=== PATIENT | male | born 1980 | race Caucasian/White ===

== ENCOUNTER 2021-01-09 15:29 | Outpatient (CLI) | payer BC, SELFPAY ==
--- NOTE | 2021-01-09 | XR_ITS ---
WS: [id number] RIGHT TIBIA-FIBULA 2 VIEWS HISTORY: RT LEG PAIN COMPARISON: None available. Nondisplaced fracture through the medial malleolus. No additional abnormalities are identified. Corre late with trauma to this area as there is not significant soft tissue edema. XR/XR tibia fibula RT 2V [id number] IMPRESSION: Age-indeterminate nondisplaced medial malleolus fracture. Correlate with point tenderness. Otherwise negative.
== END 2021-01-09 15:30 | disposition home or self-care (01) ==
PROVIDERS: PCP Family Medicine; Visit Provider Family Medicine
DX: S82.54XA Nondisplaced fracture of medial malleolus of right tibia, initial encounter for closed fracture (principal); X58.XXXA Exposure to other specified factors, initial encounter
CPT/HCPCS: 73590

== ENCOUNTER 2021-02-05 16:04 | Emergency (ER) | payer BC, SELFPAY ==
[2021-02-05 16:27] VITALS: BP 131/83; PULSE 71; RESP 18; TEMP 36.1; O2SAT 99; BMI 29.8
[2021-02-05 17:06] LABS: Add Urine Microscopic? YES; Bilirubin Urine 1+ (Negative); Blood Urine 3+ (Negative); Glucose Urine UA Norm (Normal); Ketones Urine 1+ (Negative); Leukocyte Esterase Urine Negative (Negative); Nitrate Urine Negative (Negative); Protein Urine Neg (Negative); Specific Gravity, Urine 1.025 (1.005-1.030); Urine Appearance Hazy (CLEAR); Urine Color Yellow (Yellow); Urobilinogen Urine Norm (Negative); pH Urine 5 (5-7)
[2021-02-05 17:07] LABS: Add Urine Culture? Yes; Amorphous Sediment Urine 1+ /hpf; Bacteria Urine 1+ /hpf; RBC Urine 25-40 /hpf (0-2)
--- NOTE | 2021-02-05 17:13 | CTR_ITS ---
PROCEDURE INFORMATION: Exam: CT Abdomen And Pelvis Without Contrast Exam date and time: 02/05/2021 5:18 PM Age: 40 years old Clinical indication: Nausea and vomiting; Abdominal pain; Flank; Left; Additional info: Leftg flank pain TECHNIQUE: Imaging protocol: Computed tomography of the abdomen and pelvis without contrast. Radiation optimization: All CT scans at this facility use at least one of these dose optimization techniques: automated exposure control; mA and/or kV adjustment per patient size (includes targeted exams where dose is matched to clinical indication); or iterative reconstruction. COMPARISON: CR Hip 2-3v LEFT wwo Pelv* [id number] 02/17/2018 9:54 AM RADIATION DOSE METRICS: Total DLP (mGy-cm): 1834.2 FINDINGS: Limitations: The absence of intravenous contrast lessens the sensitivity of this study for solid organ abnormalities. Liver: There is no focal abnormality within the liver. Gallbladder and bile ducts: The gallbladder is normal. Pancreas: The pancreas is normal. Spleen: The spleen is normal. Adrenal glands: The adrenal glands are normal. Kidneys and ureters: There is a 3 mmh mm sized stone in the distal left ureter approximately at the left ureterovesical junction. The stone is approximately 500 Hounsfield units and is possibly visible on the help desk engineer image. The right kidney is normal. There is mild left hydronephrosis. There is a large 5 cm sized peripelvic cyst on the left. There is mild periureteric stranding on the left. There is mild dilatation of the distal left ureter. Stomach and bowel: There is no evidence of colitis/diverticulitis. Appendix: A normal appendix is identified. Intraperitoneal space: Unremarkable. No free air. No significant fluid collection. Vasculature: Unremarkable. No abdominal aortic aneurysm. Lymph nodes: Unremarkable. No enlarged lymph nodes. Urinary bladder: Unremarkable as visualized. Reproductive: The prostate gland demonstrates nonspecific parenchymal calcifications. Bones/joints: The lumbar spine demonstrates mild degenerative changes at multiple levels. Soft tissues: There are small bilateral inguinal hernias containing only fat. CT/CT kidney stone [id number] IMPRESSION: Small obstructing stone at the left ureterovesical junction. Radiation Dose CTDIVOL = (mGy): DLP = 1834.2 (mGy-cm)
[2021-02-05 17:19] LABS: Basophils % 0.2 %; Eosinophils # 0.1 10^3/uL (0.0-0.8); Eosinophils % 0.9 %; Hematocrit 43.8 % (42.0-52.0); Hemoglobin 14.5 g/dL (11.7-16.6); Lymphocytes # 1.7 10^3/uL (0.8-4.8); Lymphocytes % 13.8 %; Mean Corpuscular HGB Conc 33.1 g/dL (30.0-36.0); Mean Corpuscular Hemoglobin 29.2 pg (28.0-34.0); Mean Corpuscular Volume 88.3 fL (80-94); Monocytes # 0.8 10^3/uL (0.2-0.9); Neutrophils # 9.91 10^3/uL (1.8-7.7); Neutrophils % 78.9 %; Nucleated Red Blood Cells % 0 %; Platelet Count 188 10^3/cmm (130-400); Red Blood Count 4.96 10^6/uL (4.1-5.3); Red Cell Distribution Width 14.1 % (12.1-15.1); White Blood Count 12.6 10^3/uL (4.0-10.0)
--- NOTE | 2021-02-05 17:24 | W.ED.MALEGU ---
HPI - Male Genitourinary General: Chief complaint: Urogenital-Male Stated complaint: LOW BACK PAIN, N/V, HE STATES POSS KIDNEY STONE Time Seen by Provider: 02/05/21 17:10 History of Present Illness: HPI Narrative: Patient with history of 1 kidney stone passed. 2 hours ago started with left flank pain pretty severe had some nausea and vomiting worse with that but has been sick the last couple days with the general nausea. Said he is having difficult time urinating this only sometimes been able to urinate today. Has not noticed any blood in his urine. Pain has moved from the left flank toward the side and anterior aspect now denies any other problems MD Complaint: other (Left flank pain) Onset (ago): hour(s) Duration: constant and progressively worsening Location: left flank Radiation: abdomen Severity: moderate Severity scale (1-10): 5 Quality: aching and sharp Relieving factors: none Exacerbating factors: none Associated symptoms: Reports nausea and vomiting Review of Systems Const: Denies: fever(s), chills or body aches Eyes: Denies: change in vision or blurry vision ENMT: Denies: throat pain or nasal congestion Card: Denies: chest pain or dyspnea on exertion Resp: Denies: dyspnea, productive cough or non-productive cough GI: Reports: nausea and vomiting : Reports: flank pain and difficulty urinating Musc: Denies: extremity pain Skin/Breast: Denies: rash Neuro: Denies: headache(s) Psych: Denies: anxiety or depression Phill/Lymph: Denies: easy bruising Physical Exam Const: COMMON NORMALS: no acute distress, average body habitus and patient oriented x3 HENMT: COMMON NORMALS: normocephalic HEAD & SCALP: normal to inspection and normocephalic FACE & SINUS: normal facial exam Eye: COMMON NORMALS: conjunctivae normal GENERAL EYE: appearance normal, both eyes and all related structures CONJUNCTIVA: Yes conjunctivae normal Neck/C-Spine: COMMON NORMALS: no JVD Chest: COMMONS NORMALS: normal inspection of the chest Resp: COMMON NORMALS: normal respiratory effort and clear to auscultation bilaterally AUSCULTATION: clear to auscultation bilaterally Cardio: COMMON NORMALS: no JVD, regular rate and regular rhythm RATE: regular rate RHYTHM: regular rhythm GI: COMMON NORMALS: Normal to inspection, nondistended, normoactive bowel sounds present : BLADDER/KIDNEY EXAM: Yes CVA tenderness on the left Back/Pelvis: GENERAL BACK: Yes CVA tenderness Extremity: COMMON NORMALS: normal to inspection and full ROM Neuro: COMMON NORMALS: patient oriented x3 Course Vital Signs: Vital signs: Vital Signs Temperature 97.0 F L 02/05/21 16:27 Pulse Rate 71 02/05/21 16:27 Respiratory Rate 18 02/05/21 16:27 Blood Pressure 131/83 02/05/21 16:27 Pulse Oximetry 99 02/05/21 16:27 MDM - Male Lab Data: Labs: Lab Results 02/05/21 02/05/21 Range/Units 16:40 17:10 WBC 12.6 H (4.0-10.0) 10^3/ uL RBC 4.96 (4.1-5.3) 10^6/u L Hgb 14.5 (11.7-16.6) g/dL Hct 43.8 (42.0-52.0) % MCV 88.3 (80-94) fL MCH 29.2 (28.0-34.0) pg MCHC 33.1 (30.0-36.0) g/dL RDW 14.1 (12.1-15.1) % Plt Count 188 (130-400) 10^3/c mm MPV 11.0 H (7.4-10.4) fL Neut % (Auto) 78.9 % Lymph % (Auto) 13.8 % Sanders % (Auto) 6.0 % Eos % (Auto) 0.9 % Baso % (Auto) 0.2 % Neut # (Auto) 9.91 H (1.8-7.7) 10^3/u L Lymph # (Auto) 1.7 (0.8-4.8) 10^3/u L Sanders # (Auto) 0.8 (0.2-0.9) 10^3/u L Eos # (Auto) 0.1 (0.0-0.8) 10^3/u L Baso # (Auto) 0.0 (0.0-0.1) 10^3/u L Nucleated RBC % (a uto) 0 % Nucleated RBCs # 0.0 /100WBC Urine Color Yellow (Yellow) Urine Appearance Hazy A (CLEAR) Urine pH 5 (5-7) Ur Specific Gravit y 1.025 (1.005-1.030) Urine Protein Neg (Negative) Urine Glucose (UA) Norm (Normal) Urine Ketones 1+ H (Negative) Urine Blood 3+ H (Negative) Urine Nitrate Negative (Negative) Urine Bilirubin 1+ H (Negative) Urine Urobilinogen Norm (Negative) mg/dL Ur Leukocyte Sheila ase Negative (Negative) Urine RBC 25-40 H (0-2) /hpf Urine WBC None (0-5) /hpf Ur Squamous Epith Cells None (0-5) /hpf Amorphous Sediment 1+ /hpf Urine Bacteria 1+ H (NONE) /hpf Discharge Plan Discharge Prescriptions: No Action lansoprazole 30 mg capsule,delayed release(DR/EC) 30 mg PO BID RF: 0 Flovent HFA 110 mcg/actuation Hfa Aerosol Inhaler 1 puff INHALATION BID PRN (Reason: Shortness Of Breath) RF: 0 olmesartan 40 mg tablet 40 mg PO DAILY RF: 0 hydrochlorothiazide 12.5 mg tablet 12.5 mg PO DAILY RF: 0 Coding Level of Care Code ED 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
[2021-02-05 17:38] LABS: Alanine Aminotransferase 27 U/L (0-41); Albumin Level 4.5 g/dL (3.5-5.2); Alkaline Phosphatase 75 IU/L (40-130); Anion Gap 12.7 (5-19); Aspartate Amino Transferase 22 U/L (0-40); Blood Urea Nitrogen 17 mg/dL (6-20); Calcium 9.3 mg/dL (8.5-10.5); Carbon Dioxide 27 mmol/L (22-29); Chloride 100 mmol/L (98-107); Globulin 2.9 g/dL (1.3-4.6); Glomerular Filtration Rate 81.9 mL/min (90-130); Glucose 99 mg/dL (65-115); Osmolality Calculated 284 mOsm/kg (285-295); Potassium 3.7 mmol/L (3.5-5.1); Sodium 136 mmol/L (136-145); Total Bilirubin 0.6 mg/dL (0.15-1.2); Total Protein 7.4 g/dL (6.6-8.7)
[2021-02-05 18:02] VITALS: RESP 20; O2SAT 98
[2021-02-05] MEDS: sodium chloride 0.9% 1,000 ML 999 ML IV (18:02)
[2021-02-05] MEDS: morphine 4 mg/mL SDV 1 mL IVP (18:02)
[2021-02-05] MEDS: ondansetron 2 mg/ML SDV 2 mL 4 MG IVP (18:02)
[2021-02-05 19:29] VITALS: O2SAT 96; O2SAT 97
[2021-02-05] MEDS: tamsulosin 0.4 mg Capsule PO (19:34)
--- NOTE | 2021-02-05 19:41 | PC.NURSE ---
pt prescription and medication education provided. pt provided with two 5-325mg hydrocodone tablets per MD order with dosing education. pt verbalizes understanding. pt provided with one 4mg zofran tablet to take in the am. pt verbalizes understanding.
[2021-02-05 19:45] VITALS: BP 124/76; PULSE 84; RESP 18; O2SAT 98
--- NOTE | 2021-02-06 11:28 | DCPLANNER ---
communications station manager had message to schedule a follow up appointment for patient with Dr. Ruiz. communications station manager called the office of Dr. Ruiz, spoke with Viviane, gave clinic patients information. communications station manager was told that patients information would be printed and reviewed. Clinic will call patient with appointment information.
--- NOTE | 2021-02-07 08:13 | DCPLANNER ---
Patient has a follow up appointment scheduled for , February 07, 2021 at 9:[address] Ruiz. Clinic will call patient with appointment information.
--- NOTE | 2021-03-12 08:25 | DCPLANNER ---
Patient had a follow up appointment scheduled for 02.07.[address] Ruiz - patient did attend appointment.
== END 2021-02-05 19:48 | disposition home or self-care (01) ==
PROVIDERS: Physician Assistant; Emergency Provider Nurse Practitioner Family; PCP Family Medicine
DX: R11.2 Nausea with vomiting, unspecified (principal); R10.9 Unspecified abdominal pain
CPT/HCPCS: 36415; 74176; 80053; 81001; 85025; 87086; 96361; 96374; 96375; 99284; J2270; J2405; J7030

== ENCOUNTER 2021-02-07 08:16 | Outpatient (CLI) | payer BC, SELFPAY ==
--- NOTE | 2021-02-07 08:00 | XR_ITS ---
WS: [id number] KUB, 02/07/2021 Clinical Data: STONE Comparison: None. Findings: No abnormal intraabdominal masses or calcifications are seen. There is no dilatated small bowel or ev idence of obstruction. There is a moderate amount of fecal material throughout the colon. No abnormal calcifications are see n in the true pelvis. XR/XR KUB [id number] Impression: Negative KUB.
== END 2021-02-07 08:17 | disposition home or self-care (01) ==
LOC: RAD 08:23
PROVIDERS: PCP Family Medicine; Visit Provider Urology
DX: N20.9 Urinary calculus, unspecified (principal)
CPT/HCPCS: 74018; 81003

== ENCOUNTER 2021-02-22 08:24 | Outpatient (CLI) | payer BC, SELFPAY ==
--- NOTE | 2021-02-22 08:15 | XR_ITS ---
WS: [id number] KUB, AP view, 02/22/2021 Clinical Data: N20.1 - Calculus of ureter Comparison: KUB, 02/07/2021. Findings: No abnormal intraabdominal masses or calcifications are seen. There is no dilatated small bowel or ev idence of obstruction. No definite ureteral calculus is seen. XR/XR KUB [id number] Impression: Negative KUB.
== END 2021-02-22 08:25 | disposition home or self-care (01) ==
PROVIDERS: PCP Family Medicine; Visit Provider Urology
DX: N20.1 Calculus of ureter (principal)
CPT/HCPCS: 74018; 81003; 82365; 88300

== ENCOUNTER 2022-06-01 09:23 | Emergency (ER) | payer BC, SELFPAY ==
[2022-06-01 09:40] VITALS: BP 160/90; PULSE 76; RESP 18; TEMP 36.9; O2SAT 96; BMI 29.8
--- NOTE | 2022-06-01 10:05 | XRR_ITS ---
PROCEDURE INFORMATION: Exam: XR Right Ribs with PA Chest Exam date and time: 06/01/2022 10:28 AM Age: 41 years old Clinical indication: Injury or trauma; Other: Kicked by calf; Rib area; Blunt trauma (contusions or hematomas); Additional info: Kicked by cow TECHNIQUE: Imaging protocol: Radiologic exam of the Right ribs with PA chest. Views: 3 views COMPARISON: CT Chest [facility] [place] [id number] 09/19/2015 2:26 PM FINDINGS: Lungs: The lung parenchyma is clear. Pleural spaces: No pneumothorax. No pleural effusion. Heart/Mediastinum: The cardiomediastinal silhouette is within normal limits. Bones/joints: Unremarkable. No displaced rib fractures identified. XR/XR ribs RT mn 3V w CXR1V [id number] IMPRESSION: No acute findings.
--- NOTE | 2022-06-01 10:06 | XRR_ITS ---
PROCEDURE INFORMATION: Exam: XR Right Hip Exam date and time: 06/01/2022 10:28 AM Age: 41 years old Clinical indication: Injury or trauma; Other: Kicked by cow; Blunt trauma (contusions or hematomas); Right; Hip TECHNIQUE: Imaging protocol: Radiologic exam of the Right hip. Views: 2 or 3 views hip with pelvis when performed. COMPARISON: CT kidney stone [id number] 02/05/2021 5:41 PM FINDINGS: Bones/joints: The visualized pelvis is grossly intact. The hip joint maintains normal alignment. No proximal femoral fracture identified. Soft tissues: Unremarkable. XR/XR hip RT 2-3V wo/w pel* [id number] IMPRESSION: No fracture identified.
[2022-06-01 10:16] VITALS: BP 157/132; PULSE 76; RESP 16; O2SAT 97
--- NOTE | 2022-06-01 10:16 | ED_ITS ---
HPI - General Adult General: Chief complaint: General Medical Stated complaint: kicked by calf Time Seen by Provider: 06/01/22 10:16 Source: patient Mode of arrival: ambulatory Limitations: no limitations History of Present Illness: 41-year-old male presents to the ER today after being thrown by calf last night. 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 Patient reports he thinks he landed with his right arm underneath him on the right side. Patient reports right rib pain and right hip pain. Patient reports rib pain is worse with palpation and deep breaths. Patient is very uncomfortable to move. He reports the hip pain is tender to touch however he has been able to walk okay. Patient did take hydrocodone last night due to the pain. He has no other symptoms at this time. Review of Systems General: Reports: 10 or more systems reviewed and unremarkable except in HPI and below PFSH ED PFSH: Medical History Calculus of distal left ureter History of esophageal dilatation Hypertension Recurrent kidney stones Family History Father Hypertension Social History Smoking and tobacco status: never smoked Alcohol intake: current Alcohol intake frequency: holidays/special occasions o nly Marital status: Current occupational status: employed History of recent travel: Yes ([place] 3 weeks ago) Physical Exam Const: COMMON NORMALS: no acute distress, average body habitus, patient oriented x3, no limitations, healthy appearing, alert and well nourished Neck/C-Spine: COMMON NORMALS: full ROM Chest: CHEST: Yes tenderness rib (~8-12) and sternoclavicular joint on the right Resp: COMMON NORMALS: normal respiratory effort, No retractions and clear to auscultation bilaterally EFFORT & INSPECTION: Yes able to speak in complete sentences AUSCULTATION: clear to auscultation bilaterally Cardio: COMMON NORMALS: regular rate, regular rhythm and No murmurs present (Cardio) RATE: regular rate RHYTHM: regular rhythm Back/Pelvis: COMMON NORMALS: thoraco-lumbar ROM normal Extremity: COMMON NORMALS: normal to inspection and full ROM OTHER: Patient has point tenderness to palpation over the right proximal hip joint laterally however normal ROM and normal weight bearing. Neuro: COMMON NORMALS: patient oriented x3 SENSORIUM/ORIENTATION: Yes alert Psych: COMMON NORMALS: mental status grossly normal, Normal thought process present and cooperative THOUGHT PROCESS: Normal thought process present Skin: COMMON NORMALS: no rashes or lesions noted and no wounds GENERAL SKIN EXAM: no rashes or lesions noted Course ED course: 41-year-old male presents to the ER today after being thrown and kicked by cath last night. Patient reports right rib pain and right hip pain. Patient reports pain with deep breaths and with movement. Patient reports he did take hydrocodone last night for the pain which took the edge off. He reports pain in the hip is worse with palpation then with movement. We will get x-rays of the ribs/chest and right hip. Vital Signs: Vital signs: Vital Signs Temperature 98.5 F 06/01/22 09:40 Pulse Rate 76 06/01/22 10:16 Respiratory Rate 16 06/01/22 10:16 Blood Pressure 157/132 06/01/22 10:16 Pulse Oximetry 97 06/01/22 10:16 MDM - General Adult Medical Decision Making 41-year-old male presents to the ER today after being thrown and kicked by cath last night. Patient reports right rib pain and right hip pain. Patient reports pain with deep breaths and with movement. Patient reports he did take hydrocodone last night for the pain which took the edge off. He reports pain in the hip is worse with palpation then with movement. We will get x-rays of the ribs/chest and right hip. X-rays are normal and do not indicate any acute fractures. Likely patient has a rib contusion and hip contusion. Discussed findings with patient. We will do Robaxin and ketorolac for pain. I would recommend patient follow-up with PCP in 4 to 7 days. Rest and conservative treatment recommended. Make sure to do deep breathing exercises to prevent pneumonia. No splinting of the ribs recommended. Return to the ER with new or worsening symptoms. Patient verbalized understanding and was in agreement with the treatment plan. Lab Data Radiology Impressions Ribs X-Ray 06/01/22 10:05 IMPRESSION: No acute findings. Hip/Pelvis X-Ray 06/01/22 10:06 IMPRESSION: No fracture identified. Critical Care Time Critical Care Time: Critical Care Time: No Discharge Plan Discharge Patient Disposition: Home Clinical Impression: Contusion of rib on right side Qualifiers: Encounter type: initial encounter Qualified Code(s): S20.211A - Contusion of right front wall of thorax, initial encounter Contusion of hip, right Qualifiers: Encounter type: initial encounter Qualified Code(s): S70.01XA - Contusion of right hip, initial encounter Condition: Stable Prescriptions: New ketorolac 10 mg tablet 10 mg PO Q8H PRN (Reason: pain) 3 Days 0RF methocarbamol 750 mg tablet 750 mg PO Q8H Qty: 21 0RF Discontinued methylprednisolone [Medrol (Flakito)] 4 mg tablets,dose pack See Rx Instructions PO PER PKG DIR Qty: 21 0RF Rx Instructions: PO PER PKG DIR No Action Flomax 0.4 mg capsule 0.4 mg PO DAILY Qty: 30 0RF doxycycline hyclate 100 mg capsule 100 mg PO BID 7 Days Qty: 14 0RF lansoprazole 30 mg capsule,delayed release(DR/EC) 30 mg PO BID 0RF Flovent HFA 110 mcg/actuation Hfa Aerosol Inhaler 1 puff INHALATION BID PRN (Reason: Shortness Of Breath) 0RF olmesartan 40 mg tablet 40 mg PO DAILY 0RF hydrochlorothiazide 12.5 mg tablet 12.5 mg PO DAILY 0RF hydrocodone-acetaminophen 5-325 mg tablet 1 tab PO TID PRN (Reason: pain) Qty: 10 0RF Discharge Orders: Discharge ED (Routine); Ordered 06/01/22 Ordered By: Bronwyn Casarez Referrals: Leonel Man MD [Primary Care Provider] - Discharge Diet: Usual diet Discharge Activity: Increase activity as tolerated Patient Instructions: Opioid Safety Activity Restrictions/Additional Instructions: Take ketorolac and Robaxin as prescribed. Recommend conservative treatment at this time including warm moist heat alternating with ice. Rest recommended. Avoid splinting. Deep breathing recommended. Follow-up with PCP in 4 to 7 days. Return to the ER with new or worsening symptoms. 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
[2022-06-01 11:28] VITALS: BP 148/99; PULSE 72; RESP 14; O2SAT 96
== END 2022-06-01 11:27 | disposition home or self-care (01) ==
PROVIDERS: Emergency Provider Physician Assistant; PCP Family Medicine
DX: S20.211A Contusion of right front wall of thorax, initial encounter (principal); S70.01XA Contusion of right hip, initial encounter; I10 Essential (primary) hypertension; W55.22XA Struck by cow, initial encounter
CPT/HCPCS: 71101; 73502; 99283

== ENCOUNTER 2024-01-14 04:33 | Inpatient (IN) | payer BC, SELFPAY ==
[2024-01-14] VITALS (9 sets, daily range): BP systolic 87–172; BP diastolic 63–108; PULSE 72–93; RESP 18–22; TEMP 36.7–37.3; O2SAT 92–97; BMI 29.8
--- NOTE | 2024-01-14 04:42 | ECG_ITS ---
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 Measurements Intervals [place] Rate: 92 P: 58 [place]: 157 QRS: 0 QRSD: 141 T: 66 QT: 392 QTc: 486 Interpretive Statements SINUS RHYTHM WITH SINUS ARRHYTHMIA LEFT BUNDLE BRANCH BLOCK ST ELEVATION IN SEPTAL/ANTERIOR LEADS CONSISTENT WITH ACUTE ANTERIOR WALL INJURY No previous ECG available for comparison Electronically Signed On 01-14-2024 14:45:52 REMELT FURNACE EXPEDITER by Ricardo Mackey M.D. [id number] f
--- NOTE | 2024-01-14 04:45 | XRR_ITS ---
PROCEDURE INFORMATION: Exam: XR Chest Exam date and time: 01/14/2024 4:51 AM Age: 43 years old Clinical indication: Chest wall pain; Additional info: Chest pain TECHNIQUE: Imaging protocol: Radiologic exam of the chest. Views: 1 view. COMPARISON: CR XR ribs RT mn 3V w CXR1V [id number] 06/01/2022 10:28 AM FINDINGS: Lungs: Unremarkable. No consolidation. Pleural spaces: Unremarkable. No pleural effusion. No pneumothorax. Heart/Mediastinum: Unremarkable. No cardiomegaly. Bones/joints: Unremarkable. XR/XR chest 1V portable [id number] IMPRESSION: No acute findings.
[2024-01-14 04:53] LABS: Basophils % 0.4 %; Eosinophils # 0.2 10^3/uL (0.0-0.8); Hematocrit 43.1 % (37-53); Lymphocytes # 3.4 10^3/uL (0.8-4.8); Lymphocytes % 40.3 %; Mean Corpuscular HGB Conc 32.7 g/dL (30-55); Mean Corpuscular Hemoglobin 28.8 pg (27-33); Mean Platelet Volume 10.8 fL (7.4-10.4); Monocytes # 0.5 10^3/uL (0.2-0.9); Monocytes % 5.5 %; Neutrophils # 4.37 10^3/uL (1.8-7.7); Neutrophils % 51.6 %; Nucleated Red Blood Cells % 0 %; Platelet Count 200 10^3/cmm (157-399); Red Cell Distribution Width 14.1 % (12.1-15.1); White Blood Count 8.47 10^3/uL (3.29-11.43)
[2024-01-14 05:20] LABS: Alanine Aminotransferase 33 U/L (0-41); Albumin Level 4.5 g/dL (3.5-5.2); Alkaline Phosphatase 65 U/L (40-130); Anion Gap 17.2 (5-19); Aspartate Amino Transferase 35 U/L (0-40); Blood Urea Nitrogen 21 mg/dL (6-20); Calcium 9.3 mg/dL (8.5-10.5); Carbon Dioxide 24 mmol/L (22-29); Chloride 102 mmol/L (98-107); Creatinine Clr Calc Pharmacy 126.7781; Globulin 2.8 g/dL (1.3-4.6); Glomerular Filtration Rate 91.3 mL/min (90-130); Glucose 111 mg/dL (65-115); Osmolality Calculated 292 mOsm/kg (285-295); Potassium 4.2 mmol/L (3.5-5.1); Sodium 139 mmol/L (136-145); Total Bilirubin 0.4 mg/dL (0.15-1.2); Total Protein 7.3 g/dL (6.6-8.7)
[2024-01-14 05:21] LABS: Troponin(5th) Baseline 235 ng/L (0-15)
--- NOTE | 2024-01-14 05:33 | ED_ITS ---
Documented by User: Robby Deng DO 01/14/24 05:45 HPI - Chest Pain 2 General: Chief Complaint: Chest Pain Stated Complaint: Upper Arm and Chest pain Time Seen by Provider: 01/14/24 04:36 History of Present Illness: Patient presents to the ER with complaints of midsternal chest pain. Patient said he began having arm pain bilaterally last night and some indigestion but did not take a thing about it this morning when he went to work he has been started having chest pain that radiated up into his left arm. This was concerning enough that brought him here to the ER. Patient has no history of cardiac disease, chest pain he has hypertension. Patient did not denies nausea vomiting, diaphoresis, shortness of breath, Review of Systems 2 General: Reports: 10 or more systems reviewed and unremarkable except in HPI and below PFSH ED 2 PFSH: Medical History (Updated 01/14/24 @ 07:07 by Sebastian Rivero DO) Acute anterior wall MN Recurrent kidney stones History of esophageal dilatation Hypertension Calculus of distal left ureter Family History Father Hypertension Social History Smoking and tobacco/nicotine status: never used tobacco/nicotine Alcohol intake: current Alcohol intake frequency: holidays/special occasions only Marital status: Current occupational status: employed Physical Exam 2 Const: COMMON NORMALS: no acute distress, average body habitus, patient oriented x3, no limitations, healthy appearing, alert and well nourished HENMT: COMMON NORMALS: normocephalic, atraumatic, hearing grossly normal bilaterally, external ears normal, Normal external nose present, moist oral mucous membranes and oropharynx normal HEAD & SCALP: normocephalic and atraumatic NOSE: Normal external nose present EXTERNAL EAR: Yes external ears normal Neck/C-Spine: COMMON NORMALS: no JVD Chest: COMMONS NORMALS: normal inspection of the chest; negative for normal palpation of entire chest wall (Midsternal tenderness with palpation makes the pain somewhat worse) Resp: COMMON NORMALS: normal respiratory effort, No retractions, No use of accessory muscles and clear to auscultation bilaterally AUSCULTATION: clear to auscultation bilaterally Cardio: COMMON NORMALS: no JVD, regular rate, regular rhythm, S1 normal heart sound present, S2 normal heart sound present, No gallops present (Cardio), No clicks present (Cardio), No murmurs present (Cardio) and No rub (Cardio) R ATE: regular rate RHYTHM: regular rhythm HEART SOUNDS: S1 normal heart sound present and S2 normal heart sound present GI: COMMON NORMALS: Normal to inspection, nondistended, normoactive bowel sounds present, Soft to palpation, non-tender, No hepatosplenomegaly present and no masses PALPATION: Yes Soft to palpation and Yes No hepatosplenomegaly present Neuro: COMMON NORMALS: patient oriented x3 SENSORIUM/ORIENTATION: Yes alert Course 2 Vital Signs: Vital signs: Vital Signs Temperature 98.0 F 01/14/24 04:37 Pulse Rate 84 01/14/24 05:44 Respiratory Rate 20 H 01/14/24 05:44 Blood Pressure 172/108 01/14/24 05:44 Pulse Oximetry 96 01/14/24 05:44 Oxygen Delivery Me thod Room Air 01/14/24 04:37 MDM - Chest Pain Medical Records I reviewed the patient's medical records. Lab Data I reviewed the patient's lab results. 01/14/24 04:49 01/14/24 04:49 Radiology Impressions Chest X-Ray 01/14/24 04:45 IMPRESSION: No acute findings. Laboratory Results WBC 8.47 10^3/uL (3.29-11.43) 01/14/24 04:49 RBC 4.90 10^6/uL (3.85-5.65) 01/14/24 04:49 Hgb 14.10 g/dL (11.27-16.99) 01/14/24 04:49 Hct 43.1 % (37-53) 01/14/24 04:49 MCV 88.0 fl (82-101) 01/14/24 04:49 MCH 28.8 pg (27-33) 01/14/24 04:49 MCHC 32.7 g/dL (30-55) 01/14/24 04:49 RDW 14.1 % (12.1-15.1) 01/14/24 04:49 Plt Count 200 10^3/cmm (157-399) 01/14/24 04:49 MPV 10.8 fL (7.4-10.4) H 01/14/24 04:49 Neut % (Auto) 51.6 % 01/14/24 04:49 Lymph % (Auto) 40.3 % 01/14/24 04:49 [place] % (Auto) 5.5 % 01/14/24 04:49 Eos % (Auto) 2.0 % 01/14/24 04:49 Baso % (Auto) 0.4 % 01/14/24 04:49 Neut # (Auto) 4.37 10^3/uL (1.8-7.7) 01/14/24 04:49 Lymph # (Auto) 3.4 10^3/uL (0.8-4.8) 01/14/24 04:49 [place] # (Auto) 0.5 10^3/uL (0.2-0.9) 01/14/24 04:49 Eos # (Auto) 0.2 10^3/uL (0.0-0.8) 01/14/24 04:49 Baso # (Auto) 0.0 10^3/uL (0.0-0.1) 01/14/24 04:49 Nucleated RBC % (auto) 0 % 01/14/24 04:49 Nucleated RBCs # 0.0 /100WBC 01/14/24 04:49 APTT 26.5 SECONDS (23.9-36.7) 01/14/24 04:49 Sodium 139 mmol/L (136-145) 01/14/24 04:49 Potassium 4.2 mmol/L (3.5-5.1) 01/14/24 04:49 Chloride 102 mmol/L (98-107) 01/14/24 04:49 Carbon Dioxide 24 mmol/L (22-29) 01/14/24 04:49 Anion Gap 17.2 (5-19) 01/14/24 04:49 BUN 21 mg/dL (6-20) H 01/14/24 04:49 Creatinine 0.9 mg/dL (0.7-1.2) 01/14/24 04:49 GFR Calculation 91.3 mL/min (90-130) 01/14/24 04:49 Glucose 111 mg/dL (65-115) 01/14/24 04:49 Calculated Osmolality 292 mOsm/kg (285-295) 01/14/24 04:49 Calcium 9.3 mg/dL (8.5-10.5) 01/14/24 04:49 Total Bilirubin 0.4 mg/dL (0.15-1.2) 01/14/24 04:49 AST 35 U/L (0-40) 01/14/24 04:49 ALT 33 U/L (0-41) 01/14/24 04:49 Alkaline Phosphatase 65 U/L (40-130) 01/14/24 04:49 Troponin T Baseline 235 ng/L (0-15) H* 01/14/24 04:49 Total Protein 7.3 g/dL (6.6-8.7) 01/14/24 04:49 Albumin 4.5 g/dL (3.5-5.2) 01/14/24 04:49 Globulin 2.8 g/dL (1.3-4.6) 01/14/24 04:49 All radiology interpretation(s) finalized by discharge Discharge Plan Discharge Patient Disposition: Admitted As Inpatient Clinical Impression: ST elevation myocardial infarction (STEMI), Hypertension Condition: Stable Coding Level of Care Code ED Business Office Specialist for Chg Fwd Documented by User: Sebastian Rivero DO 01/14/24 07:07 HPI - Chest Pain 2 General: Chief Complaint: Chest Pain Stated Complaint: Upper Arm and Chest pain Time Seen by Provider: 01/14/24 04:36 [facility] ED 2 [facility]: Medical History (Updated 01/14/24 @ 07:07 by Sebastian Rivero DO) Acute anterior wall MN Recurrent kidney stones History of esophageal dilatation Hypertension Calculus of distal left ureter Family History Father Hypertension Social History Smoking and tobacco/nicotine status: never used tobacco/nicotine Alcohol intake: current Alcohol intake frequency: holidays/special occasions only Marital status: Current occupational status: employed Course 2 Vital Signs: Vital signs: Vital Signs Temperature 98.0 F 01/14/24 04:37 Pulse Rate 84 01/14/24 05:44 Respiratory Rate 20 H 01/14/24 05:44 Blood Pressure 172/108 01/14/24 05:44 Pulse Oximetry 96 01/14/24 05:44 Oxygen Delivery Me thod Room Air 01/14/24 04:37 MDM - Chest Pain Medical Decision Making Care assumed at change of shift at approximately 540, reviewed EKG. Orders for heparin Plavix and nitro drip. Patient had already been given aspirin. EKG taken to [facility] by myself and discussed with Dr. Fountain who is currently working on another STEMI patient at this time. Patient has been having chest pain yesterday in his left arm with activities and again this morning when he began to work. Patient has acute ST elevation Anterior leads V1 through 5. At this time he has very little chest discomfort. He was given initial STEMI medications and started on a nitro drip. Dr. Fountain will take this patient to the [facility] immediately after he finishes the current 1 he was about completed. Considered TNKase however since patient's pain is improved and we are about to go to the [facility] we did heparin for now. Repeat EKG shows persistent ST elevations initial troponin 235 chest x-ray does not show any acute findings Differential Diagnosis Likely acute myocardial infarction Lab Data 01/14/24 04:49 01/14/24 04:49 Radiology Impressions Chest X-Ray 01/14/24 04:45 IMPRESSION: No acute findings. Laboratory Results WBC 8.47 10^3/uL (3.29-11.43) 01/14/24 04:49 RBC 4.90 10^6/uL (3.85-5.65) 01/14/24 04:49 Hgb 14.10 g/dL (11.27-16.99) 01/14/24 04:49 Hct 43.1 % (37-53) 01/14/24 04:49 MCV 88.0 fl (82-101) 01/14/24 04:49 MCH 28.8 pg (27-33) 01/14/24 04:49 MCHC 32.7 g/dL (30-55) 01/14/24 04:49 RDW 14.1 % (12.1-15.1) 01/14/24 04:49 Plt Count 200 10^3/cmm (157-399) 01/14/24 04:49 MPV 10.8 fL (7.4-10.4) H 01/14/24 04:49 Neut % (Auto) 51.6 % 01/14/24 04:49 Lymph % (Auto) 40.3 % 01/14/24 04:49 [place] % (Auto) 5.5 % 01/14/24 04:49 Eos % (Auto) 2.0 % 01/14/24 04:49 Baso % (Auto) 0.4 % 01/14/24 04:49 Neut # (Auto) 4.37 10^3/uL (1.8-7.7) 01/14/24 04:49 Lymph # (Auto) 3.4 10^3/uL (0.8-4.8) 01/14/24 04:49 [place] # (Auto) 0.5 10^3/uL (0.2-0.9) 01/14/24 04:49 Eos # (Auto) 0.2 10^3/uL (0.0-0.8) 01/14/24 04:49 Baso # (Auto) 0.0 10^3/uL (0.0-0.1) 01/14/24 04:49 Nucleated RBC % (auto) 0 % 01/14/24 04:49 Nucleated RBCs # 0.0 /100WBC 01/14/24 04:49 APTT 26.5 SECONDS (23.9-36.7) 01/14/24 04:49 Sodium 139 mmol/L (136-145) 01/14/24 04:49 Potassium 4.2 mmol/L (3.5-5.1) 01/14/24 04:49 Chloride 102 mmol/L (98-107) 01/14/24 04:49 Carbon Dioxide 24 mmol/L (22-29) 01/14/24 04:49 Anion Gap 17.2 (5-19) 01/14/24 04:49 BUN 21 mg/dL (6-20) H 01/14/24 04:49 Creatinine 0.9 mg/dL (0.7-1.2) 01/14/24 04:49 GFR Calculation 91.3 mL/min (90-130) 01/14/24 04:49 Glucose 111 mg/dL (65-115) 01/14/24 04:49 Calculated Osmolality 292 mOsm/kg (285-295) 01/14/24 04:49 Calcium 9.3 mg/dL (8.5-10.5) 01/14/24 04:49 Total Bilirubin 0.4 mg/dL (0.15-1.2) 01/14/24 04:49 AST 35 U/L (0-40) 01/14/24 04:49 ALT 33 U/L (0-41) 01/14/24 04:49 Alkaline Phosphatase 65 U/L (40-130) 01/14/24 04:49 Troponin T Baseline 235 ng/L (0-15) H* 01/14/24 04:49 Total Protein 7.3 g/dL (6.6-8.7) 01/14/24 04:49 Albumin 4.5 g/dL (3.5-5.2) 01/14/24 04:49 Globulin 2.8 g/dL (1.3-4.6) 01/14/24 04:49 Discharge Plan Discharge Patient Disposition: Admitted As Inpatient Clinical Impression: ST elevation myocardial infarction (STEMI), Hypertension Condition: Stable Coding Level of Care Code ED Business Office Specialist for Ayde Cronin
--- NOTE | 2024-01-14 05:37 | ECG_ITS ---
[facility] Test Date: 2024-01-14 Pat Name: Perry De Jesus Department: Room: Gender: Male Pulp Maker: : 1980 Requested By: Robby Deng Order Number: [id number] MD: Ricardo Mackey M.D. Measurements Intervals [place] Rate: 70 P: 46 ME: 149 QRS: -10 QRSD: 154 T: 55 QT: 432 QTc: 468 Interpretive Statements SINUS RHYTHM LEFT BUNDLE BRANCH BLOCK [120+ ms QRS DURATION, 80+ ms Q/S IN V1/V2, 85+ ms R IN I/aVL/V5/V6] ST ELEVATION IN SEPTAL/ANTERIOR LEADS CONSISTENT WITH ACUTE ANTERIOR WALL INJURY Compared to ECG 01/14/2024 04:42:37 Left bundle-branch block now present Sinus arrhythmia no longer present Intraventricular conduction delay no longer present Myocardial infarct finding no longer present Electronically Signed On 01-14-2024 14:51:38 JUNIOR HIGH MATH TEACHER by Ricardo Mackey M.D. [email or web address]
[2024-01-14] MEDS: heparin 5,000 unit/mL INJ 1 mL 4000 UNIT IVP (05:53)
[2024-01-14] MEDS: aspirin 81 mg Chew Tablet 324 MG PO (05:56)
[2024-01-14] MEDS: clopidogrel 300 mg Tablet 600 MG PO (05:56)
--- NOTE | 2024-01-14 05:59 | PC.NURSE ---
Pt. has elevated troponin and EKG is concerning of STEMI. 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 Dr. Novak and crew were taken EKG to assess. Waiting for further orders from director life.
[2024-01-14] MEDS: nitroglycerin 0.4 mg sublingual Tablet 0.400000000000000022 MG SUBLINGUAL (06:12)
[2024-01-14] MEDS: heparin drip 25,000 UNIT/500 ML PREMIX 27.9400000000000013 UNIT IV (06:35)
--- NOTE | 2024-01-14 06:42 | XACV_ITS ---
Exam Room: 2 Ht: 183 cm Wt: 100 kg BSA: 2.27 m2 Gender: Male : 1980 Any Known Allergies: No known allergies Exam Priority: Routine Procedure(s): Procedure Description: Diagnostic procedure Procedure Description: PCI procedure Procedure Description: Left Heart Catheterization Procedure Description: Drug Eluting Coronary Stent Procedure Description: PTCA Procedure Description: Coronary Angiography Essie HOPKINS; Diagnostic Cath Status: Emergency Diagnostic Findings * Young man with no prior history with arm discomfort yesterday and then chest pain this morning. EKG shows a new left bundle branch block with typical signs of an acute anterior wall TN. Angiography reveals an occluded LAD in the midportion just beyond the takeoff of a diagonal branch. He has a large ramus intermedius artery which has about a 30 or 40% stenosis in the circumflex is unremarkable. The left main is normal. The right coronary artery is also normal. The circulation is left dominant with a tiny nondominant right coronary artery.. PCI Status: Emergency PCI LVEF Assessed: No PCI Indication: STEMI - Immediate PCI for STEMI Interventional Findings * Initially the LAD underwent angioplasty. There was significant thrombus burden with distal embolization. Prior to any further intervention used an Aggrastat bolus down the vessel and then an Aggrastat drip intravenously. I used 600 mcg of intracoronary nicardipine. Good flow was reestablished. I then stented the vessel with a 3.5 x 12 mm stent. The diagonal branch was jailed but there was no significant plaque shifting into the diagonal branch. The end result was quite good. Decision for PCI with Surgical Consult: No PCI for Multi-vessel Disease: Yes Conclusions 1. Acute anterior wall TN with occluded LAD with undergoing angioplasty and stenting. Significant thrombus burden with Aggrastat and nicardipine utilization. Recommendations * Medical treatment. Interventional RX Recommendation: PCI w/o planned CABG Diagnostic RX Recommendation: PCI w/o planned CABG Anticoagulation: Heparin, Tirofiban Pressures Phase:Rest AO : 145 / 91 ( 110 ) @ 7:09:00 AM 136 / 90 ( 109 ) @ 7:10:00 AM 107 / 82 ( 94 ) @ 7:12:00 AM 113 / 85 ( 98 ) @ 7:13:00 AM 109 / 92 ( 101 ) @ 7:21:00 AM 97 / 83 ( 91 ) @ 7:24:00 AM 101 / 85 ( 93 ) @ 7:32:00 AM LV : 173 / -7 / 20 @ 7:09:00 AM 165 / -8 / 20 @ 7:09:00 AM Valves Phase:DefaultPhase AV : 14.0 @ 7:52:13 AM 14.0 @ 7:52:13 AM AV Mean Gradient: 13.0 @ 7:52:13 AM Clinical Evaluation EBL: 5mL-10mL Procedural Details Pre-Procedure Time Out. Identified patient by full name and date of as verbalized by the patient/guarantor. Does the consent match the physician's order: N/A Emergent. Accurate & Complete Informed Consent: N/A Emergent. Inpatient/Outpatient History & Physical on Chart: N/A Emergent. If H&P is completed, is and addenduem needed: N/A Emergent; If yes, is the addendum complete: N/A Emergent. Visualize and Verify Site with Patient/Guarantor: N/A. Relevant Radiology Images available: N/A Emergent. Pre-op teaching completed and patient verbalized understanding. The risks, benefits, and alternatives of sedation and/or procedure were discussed by physician. The patient agrees to continue. Procedure started. [facility] Clinical Fraility Score: 3: Managing Well. Optometric Coordinator Indications: ACS <= 24 hours. Chest Pain Symptom Assessment: Typical Angina Symptoms. Correct patient, site and procedure confirmed by cath team. Current diagnosis: STEMI. PERRLA. Strong, equal hand tile conduit layer bilaterally. Lungs clear x 5 lobes. IV Site on Arrival: 18 gauge in the left anticubital. IV Fluids: 0.9% NaCl at KVO. 0 mL infused prior to label tacker. Oxygen started at 2liters/min via nasal canula. right groin was prepped with chloroprep then draped in the usual sterile fashion. right radial was prepped with chloroprep then draped in the usual sterile fashion. Physician arrived. Current Diagnosis : STEMI. Baseline sample Acquired. HR: 75 BPM. Physician scrubbed in. Immediate Pre-Procedure Time Out. Correct Patient: N/A Emergent; Correct Procedure: N/A Emergent; Correct Site: N/A Emergent; Correct Patient Position: N/A Emergent; Correct Supplies: N/A Emergent; Dried Flammable Prep: N/A Emergent; Blood Products Available: N/A Emergent;. Lidocaine 1% infiltrated to the right radial. Arterial access obtained. 6 greenlandic XB 3 guide catheter was inserted over the wire. EDP Sample taken: LV 173/-8,20; HR: 52 BPM; SpO2: 98%. Pullback taken: LV 165/-9,20; AO 145/91(110); Mean: 13mmHg, Peak to Peak: 14mmHg, SEP: 5sec/min; HR: 72 BPM; SpO2: 98%. Multiple views taken of left coronary artery. [place] guidewire was advanced through the guide catheter to lesion in the mid LAD. Patient's family updated. Inflation number : 1 A AB TREK 2.50X15 RX BALLOON was prepped and advanced across the Mid LAD , then inflated to 8 ARIANNE for 0:16 seconds. Inflation number: 2 The AB TREK 2.50X15 RX BALLOON was reinflated across the Mid LAD, to 8 ARIANNE for 0:16 seconds. results checked. Balloon out. Inflation Number : 3 A MDT R PASCUAL 3.5X15 MARYLU -Lot Number# _[id number] EXP: 09/29/2025 was prepped and advanced across the Mid LAD. The stent was deployed at 12 ARIANNE for 0:31 seconds. Stent balloon out over wire. Results checked. Wire out. Guide catheter out. A 5 greenlandic JR4 catheter in over wire. Multiple views taken of right coronary artery. Catheter removed over the standard wire. Lab called with critical lab: 2 hour troponin 265.5 Delta troponin 30.5. Catheter out. Physician scrubbed out. A TR Band was successful obtaining hemostatsis at the Right Radial artery insertion site. Post Procedure: Pulses reassessed and unchanged. PERRLA. Strong, equal hand tile conduit layer bilaterally. No VTE prophylaxis required. Vital chart was stopped. Medication's Wasted: Other = Cardene 24.94 mg. Medication's Wasted: Other = Fentanyl 50 mg. Medication's Wasted: Heparin = 4000 units. Medication's Wasted: Nitro = 49.8 mg. Complications: None. Estimated blood loss: 5mL-10mL. Responsiveness - Normal response to verbal stimuli; alert and oriented, PERRLA. Airway - Unaffected, no intervention required; spontaneous ventilation. Circulation: W/N/L, pulses unchanged. Nausea/Vomiting: No. Patient transferred by wheelchair to CPRU. Access Site Site: Right Radial artery Sheath Size: 6 Fr Hemostasis Method: TR Band Hemostasis Success: Successful Procedure Medications Start: 6:56 AM Stop: 6:56 AM Medication: Versed Amount: 1 mg Route: I.V. Start: 6:56 AM Stop: 6:56 AM Medication: Fentanyl Amount: 25 mcg Route: I.V. Start: 7:01 AM Stop: 7:01 AM Medication: Versed Amount: 1 mg Route: I.V. Start: 7:06 AM Stop: 7:06 AM Medication: Nitrogylcerin Amount: 200 mcg Route: I.A. Start: 7:07 AM Stop: 7:07 AM Medication: Fentanyl Amount: 25 mcg Route: I.V. Start: 7:16 AM Stop: 7:16 AM Medication: Heparin Amount: 2000 units Route: I.V. Start: 7:28 AM Stop: 7:28 AM Medication: Aggrastat 12.5 mg/250 mL Amount: 50 ml Route: I.V. bolus Start: 7:29 AM Stop: 7:29 AM Medication: Aggrastat 12.5 mg/250 mL Amount: 18 ml/hr Route: I.V. drip Start: 7:36 AM Stop: 7:36 AM Medication: Cardene Amount: 200 mcg Route: I.C. Start: 7:37 AM Stop: 7:37 AM Medication: Cardene Amount: 200 mcg Route: I.C. Start: 7:39 AM Stop: 7:39 AM Medication: Cardene Amount: 200 mcg Route: I.C. I, the attending physician, have reviewed and verified all procedure medications. Yes, all medications given per verbal order History/Risk Factors Hypertension: No Dyslipidemia: No Peripheral Arterial Disease (PAD): No Myocardial Infarction (TN): No Obesity: No Renal Disease: No Prior Interventions PCI: No CABG: No Valve Surgery: No Report Signatures Finalized by Dr. Calvin Fountain MD on 01/14/2024 09:01 AM
--- NOTE | 2024-01-14 06:44 | P.HP_ITS ---
Providers/Chief Complaint 2 Admitting Physician: jaz Primary Care Provider: Leonel Man MD Chief Complaint: Upper Arm and Chest pain History of Present Illness Perry De Jesus is a 43 year old male with no prior heart disease. Last evening around 9:00 both of his arms were hurting. He got up and went to work this morning. He then started having chest pain. He came to the emergency room. His initial EKG is at 05 37. The second EKG is 0 619. These show a left bundle branch block with changes consistent with an acute anterior wall MA. At the time of the EKGs I was in the catheterization laboratory with another anterior wall myocardial infarction which was acute. The EKGs were brought to me in the about 6:20. I was still finishing up the first patient at that time. After finishing I went to the emergency room to see this gentleman. He states he still having some discomfort. He has been given aspirin, Plavix and 4000 units of heparin. Hemodynamically he is stable. He will be taken directly to the catheterization laboratory. He does not use tobacco. He has hypertension and kidney stones. No diabetes. Cholesterol status unknown. Review of Systems 2 Narrative: Review of systems is negative. Medications/Allergies Home Medications Medication Instructions Recorded Confirmed Last Taken Type fluticasone propionate 110 1 puff inhalation BID PRN 02/05/21 10/13/23 Unknown History mcg/actuation HFA aerosol inhaler Shortness Of Breath (Flovent HFA) hydrochlorothiazide 12.5 mg tablet 12.5 mg PO DAILY 02/05/21 10/13/23 02/05/21 History lansoprazole 30 mg capsule,delayed 30 mg PO BID 02/05/21 10/13/23 02/05/21 History release tamsulosin 0.4 mg capsule (Flomax) 0.4 mg PO DAILY #30 caps 02/07/21 10/13/23 Unknown Rx methocarbamol 750 mg tablet 750 mg PO Q8H #21 tabs 12/02/22 10/13/23 Unknown Rx olmesartan 40 mg tablet 40 mg PO DAILY #30 tabs 04/01/23 10/13/23 Unknown Rx albuterol sulfate 90 mcg/actuation 2 inh inhalation QID PRN shortness 10/13/23 10/13/23 Unknown Rx aerosol inhaler of breath or wheezing #8.5 grams amoxicillin 500 mg-potassium 1 tab PO TID 7 days #21 tabs 10/13/23 10/13/23 Unknown Rx clavulanate 125 mg tablet (Augmentin) prednisone 20 mg tablet 20 mg PO DAILY #5 tabs 10/13/23 10/13/23 Unknown Rx Allergies Allergy/AdvReac Type Severity Reaction Status Date / Time No Known Allergies Allergy Verified 01/14/24 04:44 PFSH Acute 2 PFSH: Medical History (Updated 01/14/24 @ 06:48 by Calvin Fountain MD) Acute anterior wall MA Recurrent kidney stones History of esophageal dilatation Hypertension Calculus of distal left ureter Family History Father Hypertension Social History Smoking and tobacco/nicotine status: never used tobacco/nicotine Alcohol intake: current Alcohol intake frequency: holidays/special occasions only Marital status: Current occupational status: employed Vitals/I&O/Wt Last Vital Signs Temp 98.0 F 01/14/24 04:37 Pulse 84 01/14/24 05:44 Resp 20 H 01/14/24 05:44 BP 172/108 01/14/24 05:44 Pulse Ox 96 01/14/24 05:44 O2 Del Method Room Air 01/14/24 04:37 Weight last 48 hrs Weight 220 lb Physical Exam 2 Narrative: GENERAL: In general he looks and feels well right now. HEENT: Exam within normal limits. NECK: Supple without jugular vein distention. The carotid upstroke is normal without bruits. BACK: Exam normal. LUNGS: Clear. HEART: Regular rate and rhythm. ABDOMEN: Benign without organomegaly or tenderness. EXTREMITIES: No edema. NEUROLOGIC: Exam normal. SKIN: Unremarkable. Data 01/14/24 04:49 01/14/24 04:49 A&P Assessment and plan (1) Acute anterior wall MA: (2) Recurrent kidney stones: (3) Hypertension: Plan Urgent cardiac catheterization. There was delay due to the other patient being on the table. Attestations 2 Medical Necessity Statement*: Hospitalization for management of an acute anterior wall MA. Expect this stay to last 2 midnights. and Moderate Time for a total of 40 minutes, includes reviewing past or interval history, examining/interviewing patient, placing orders, counseling patient/family/other support, updating patient/family/other support, discussing plan of care with staff, communicating with other healthcare providers, documenting encounter and coordinating care Diagnoses Acute anterior wall MA I21.09 Recurrent kidney stones N20.0 Hypertension I10
[2024-01-14 06:51] LABS: Partial Thromboplastin Time 26.5 SECONDS (23.9-36.7)
[2024-01-14 07:43] LABS: Troponin 5 2HR 265.5 ng/L (0-15); Troponin 5 2HR Delta 30.5 ABS# (0-10)
--- NOTE | 2024-01-14 08:15 | SUR.PHASEI ---
BED AVAILABLE. TRANSFERRED TO CSU VIA BED. REPORT TO SHELBY RN. No change in TR BAND or assessments.
--- NOTE | 2024-01-14 08:24 | PC.NURSE ---
Received patient from cath lab manager post STEMI Pt is alert, relaxed and calm, orientedx3, on room air. pt denies any chest pain but reports of occassional chest discomfort and he said it is not getting any worse. Educated pt to let nurse know if any chest discomfort or pain is constant and getting worse. pt verbalizes understanding. Pt is on aggrastat drip and received verbal order from Dr Fountain to infused the whole bag. NS at 100 ml/hr per order. TR band is intact. no hematoma, swelling or bleeding. Educated pt on no lifting or using right arm to push, pull or lift weights. call light and urinal provided.
--- NOTE | 2024-01-14 09:07 | PC.NURSE ---
Frequent PVC's, AIVT on tele Dr Fountain is aware of the pt's frequent pvc's and aivt. pt is post stemi w/1 stent to mid lad, reperfusion on the territory. pt has no severe steady chest pain but has occassional chest discomfort.
[2024-01-14] MEDS: metoprolol tartrate 25 mg Tablet PO ×2 (09:33→18:10)
--- NOTE | 2024-01-14 09:36 | SUR.PHASEI ---
HOLDING NOTE POST CATH NOTE Received patient from lab support tech. Status post cardiac catheterization via the right radial approach. TR Band in place. Site is hemostatic. Verbal post cath instructions went over with the patient. She understood well. Vitals and assessments per flowsheet. Call light in reach. Informed to call for needs. Holding pending bed availability.
[2024-01-14] MEDS: sodium chloride 0.9% 1,000 ML 100 ML IV ×2 (09:38→23:34)
--- NOTE | 2024-01-14 09:47 | PC.NURSE ---
aggrastat bag is empty and infused. pt unhooked.
[2024-01-14] MEDS: tirofiban 5 MG/100 ML PREMIX 18 MG IV (10:08)
--- NOTE | 2024-01-14 10:45 | ECG_ITS ---
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 Measurements Intervals [place] Rate: 79 P: 0 DC: 0 QRS: 95 QRSD: 152 T: -75 QT: 462 QTc: 532 Interpretive Statements ACCELERATED IDIOVENTRICULAR RHYTHM BORDERLINE RIGHT AXIS DEVIATION [QRS AXIS > 90] INTRAVENTRICULAR CONDUCTION DELAY [130+ ms QRS DURATION] Compared to ECG 01/14/2024 05:37:42 Intraventricular conduction delay now present Sinus rhythm no longer present Left bundle-branch block no longer present Electronically Signed On 01-14-2024 14:49:52 DIRECTOR EXECUTIVE COMMUNICATIONS by Ricardo Mackey M.D. [id number]
--- NOTE | 2024-01-14 12:10 | PC.NURSE ---
pt stated a dull achy pain rated at 1 per scale. he said, i just feel it more when i move around. educated pt to let us know if it is getting severe. pt verbalizes understanding.
[2024-01-14 13:13] LABS: Troponin 5 6HR Delta 6856 ng/L (0-12)
[2024-01-14 13:14] LABS: Troponin 5 6HR 7091 ng/L (0-15)
[2024-01-14] MEDS: acetaminophen 325 mg Tablet 650 MG PO ×2 (15:46→21:32)
[2024-01-14] MEDS: pantoprazole DR 40 mg Tablet PO (18:10)
[2024-01-14] MEDS: atorvastatin 40 mg Tablet 80 MG PO (21:27)
[2024-01-15] VITALS: BP 130/85; PULSE 89; RESP 17; TEMP 37.5; O2SAT 94
[2024-01-15 04:00] VITALS: BP 121/89; PULSE 77; RESP 18; TEMP 37.2; O2SAT 93
[2024-01-15 06:09] VITALS: PULSE 65
--- NOTE | 2024-01-15 07:35 | PM.DCS ---
Discharge Providers Date of Admission: 01/14/24 07:56 Date of Discharge: January 15, 2024 Attending Provider at Admission: Calvin Fountain MD Attending Provider at Discharge: Calvin Fountain MD Primary Care Provider: Leonel Man MD Diagnoses at Discharge Discharge Diagnosis (1) Acute anterior wall UT: Status: Acute (2) Recurrent kidney stones: Status: Acute (3) Hypertension: Status: Acute Reason for Visit Reason for Visit: Upper Arm and Chest pain Brief History: Mateo was 43 years old with no prior history of heart disease. The night before admission he began to have some achiness in both arms. This started around 9 PM. 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 The achiness in his arms worsened and then he developed chest pain. He came to the emergency room where he was found to have a new left bundle branch block and ST segment elevation in the anterior precordial leads. At that time I was notified of his presence in the emergency room I was in the catheterization laboratory with another patient who was having an acute anterior wall myocardial infarction. As soon as I finished that I went to discuss the situation with Perry and his family and we made arrangements to take him to the catheterization laboratory right away. Hospital Course Hospital Course Angiography was accomplished from the right radial artery. His left anterior descending artery was occluded in the midportion just past the takeoff of a large diagonal branch. There was a significant thrombus burden. The lesion was just barely distal to the takeoff of the diagonal branch. I placed Aggrastat down the vessel as well as nicardipine. Subsequently I performed balloon angioplasty. There was a significant amount of thrombus downstream. I then stented the vessel. The stent jails the diagonal branch but there was no plaque shifting and the diagonal branch remained patent. He had some runs of accelerated idioventricular rhythm post procedure. He was not unstable. There was no evidence of heart failure. He did well throughout the remainder of the hospitalization. No entry site complications. He is under some emotional distress is a friend of his recently. He was the one who found the person and also perform CPR. His desire is to go to the service today. I had a long discussion with him about this and he and I agreed that we would discharge him today so that he could attend the service. I asked him to go home afterwards and rest. I also asked him not to work for 2 weeks. I talked to him about gradually increasing his activity. 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 His and his parents were involved in the discussion. I continued his angiotensin receptor kathia and added aspirin, Plavix, beta-kathia and a statin. Physical Exam Narrative: GENERAL: In general he is comfortable and in no distress this morning HEENT: Exam within normal limits. NECK: Supple without jugular vein distention. The carotid upstroke is normal without bruits. BACK: Exam normal. LUNGS: Clear. HEART: Regular rate and rhythm. ABDOMEN: Benign without organomegaly or tenderness. EXTREMITIES: No edema. The right radial artery entry site is flat, dry without hematoma or bleeding. NEUROLOGIC: Exam normal. SKIN: Unremarkable. 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 Laboratory Results WBC 8.47 10^3/uL (3.29-11.43) 01/14/24 04:49 RBC 4.90 10^6/uL (3.85-5.65) 01/14/24 04:49 Hgb 14.10 g/dL (11.27-16.99) 01/14/24 04:49 Hct 43.1 % (37-53) 01/14/24 04:49 MCV 88.0 fl (82-101) 01/14/24 04:49 MCH 28.8 pg (27-33) 01/14/24 04:49 MCHC 32.7 g/dL (30-55) 01/14/24 04:49 RDW 14.1 % (12.1-15.1) 01/14/24 04:49 Plt Count 200 10^3/cmm (157-399) 01/14/24 04:49 MPV 10.8 fL (7.4-10.4) H 01/14/24 04:49 Neut % (Auto) 51.6 % 01/14/24 04:49 Lymph % (Auto) 40.3 % 01/14/24 04:49 [place] % (Auto) 5.5 % 01/14/24 04:49 Eos % (Auto) 2.0 % 01/14/24 04:49 Baso % (Auto) 0.4 % 01/14/24 04:49 Neut # (Auto) 4.37 10^3/uL (1.8-7.7) 01/14/24 04:49 Lymph # (Auto) 3.4 10^3/uL (0.8-4.8) 01/14/24 04:49 [place] # (Auto) 0.5 10^3/uL (0.2-0.9) 01/14/24 04:49 Eos # (Auto) 0.2 10^3/uL (0.0-0.8) 01/14/24 04:49 Baso # (Auto) 0.0 10^3/uL (0.0-0.1) 01/14/24 04:49 Nucleated RBC % (auto) 0 % 01/14/24 04:49 Nucleated RBCs # 0.0 /100WBC 01/14/24 04:49 APTT 26.5 SECONDS (23.9-36.7) 01/14/24 04:49 Sodium 139 mmol/L (136-145) 01/14/24 04:49 Potassium 4.2 mmol/L (3.5-5.1) 01/14/24 04:49 Chloride 102 mmol/L (98-107) 01/14/24 04:49 Carbon Dioxide 24 mmol/L (22-29) 01/14/24 04:49 Anion Gap 17.2 (5-19) 01/14/24 04:49 BUN 21 mg/dL (6-20) H 01/14/24 04:49 Creatinine 0.9 mg/dL (0.7-1.2) 01/14/24 04:49 GFR Calculation 91.3 mL/min (90-130) 01/14/24 04:49 Glucose 111 mg/dL (65-115) 01/14/24 04:49 Calculated Osmolality 292 mOsm/kg (285-295) 01/14/24 04:49 Calcium 9.3 mg/dL (8.5-10.5) 01/14/24 04:49 Total Bilirubin 0.4 mg/dL (0.15-1.2) 01/14/24 04:49 AST 35 U/L (0-40) 01/14/24 04:49 ALT 33 U/L (0-41) 01/14/24 04:49 Alkaline Phosphatase 65 U/L (40-130) 01/14/24 04:49 Troponin T Baseline 235 ng/L (0-15) H* 01/14/24 04:49 Troponin T 120 Minute 265.5 ng/L (0-15) H 01/14/24 06:45 Delta Troponin T 30.5 ABS# (0-10) H* 01/14/24 06:45 Troponin T Hi Sens 6Hr 7091 ng/L (0-15) H 01/14/24 11:38 Troponin T Hi Sens 6Hr Delta 6856 ng/L (0-12) H* 01/14/24 11:38 Total Protein 7.3 g/dL (6.6-8.7) 01/14/24 04:49 Albumin 4.5 g/dL (3.5-5.2) 01/14/24 04:49 Globulin 2.8 g/dL (1.3-4.6) 01/14/24 04:49 Procedures Performed Left heart catheterization, coronary angiography, angioplasty and stent of the LAD Vitals Last Vital Signs Temp 99.0 F 01/15/24 04:00 Pulse 65 01/15/24 06:09 Resp 18 01/15/24 04:00 BP 121/89 01/15/24 04:00 Pulse Ox 93 01/15/24 04:00 O2 Del Method Room Air 01/15/24 04:00 Discharge Plan Discharge Patient Disposition: Home Condition: Stable Prescriptions: New aspirin 81 mg Tablet,Delayed Release (Dr/Ec) 81 mg PO DAILY Qty: 100 0RF clopidogrel 75 mg Tablet 75 mg PO DAILY Qty: 90 0RF metoprolol tartrate 25 mg Tablet 25 mg PO BID Qty: 180 0RF atorvastatin 40 mg Tablet 80 mg PO BEDTIME Qty: 90 0RF Continued olmesartan 40 mg tablet 40 mg PO DAILY Qty: 30 11RF lansoprazole 30 mg capsule,delayed release(DR/EC) 30 mg PO BID Discharge Orders: Discharge Order (Routine); Ordered 01/15/24 Ordered By: Calvin Fountain Referrals: Valorie Yousif FNP [Nurse Practitioner] - 02/02/24 2:00 pm Leonel Man MD [Primary Care Provider] - Discharge Diet: As Directed Discharge Activity: Increase activity as tolerated and Limit activity as instructed Patient Instructions: Metoprolol (By mouth) (Lopressor, Toprol XL), Aspirin (By mouth) (Romelia Extra Strength, Romelia Aspirin Children's,..., Atorvastatin (By mouth) (Lipitor, Atorvaliq), Clopidogrel (By mouth) (Plavix), Coronary Angioplasty (DC), Coronary Intravascular Stent Placement (DC), Post Angiogram Home Care Instructions, Post Heart Attack Stoplight Activity Restrictions/Additional Instructions: No work for 2 weeks. No vigorous activity for 1 week then gradually increase activity. No lifting over 5 pounds for 2 days with the right upper extremity. Discharge Attestations Time Spent in Discharge Care*: greater than 30 min Quality Metrics Clinical Quality Measures [ Acute Myocardial Infaction { Clinical Trial Participant: No; Contraindication to aspirin: None; Aspirin prescribed; Contraindication to statin: None; Statin prescribed; Contraindication to PCI: None; PCI performed;}] Coding Level of Care Code 23619 Total time (in minutes) for Discharge: 55 Diagnoses Acute anterior wall UT I21.09 Recurrent kidney stones N20.0 Hypertension I10
[2024-01-15 07:48] VITALS: PULSE 67; RESP 16; O2SAT 94
[2024-01-15 07:50] VITALS: BP 135/84; PULSE 67; RESP 16; O2SAT 94
--- NOTE | 2024-01-15 08:23 | PC.NURSE ---
Patient discharged at 0811. IV removed and all telemetry taken off. Nurse checked radial and saw no hematoma. Post cath instructions given as well as information on new medications and appointments. Patient left with all belongings.
== END 2024-01-15 08:25 | disposition home or self-care (01) | DRG 322 ==
LOC: ER 06:17 → CCL 06:45 → CSU 07:56
PROVIDERS: Emergency Medicine; Admitting Provider Internal Medicine Cardiovascular Disease; Emergency Provider Family Medicine; PCP Family Medicine; Visit Provider Internal Medicine Cardiovascular Disease
PROC: 027034Z Dilation of Coronary Artery, One Artery with Drug-eluting Intraluminal Device, Percutaneous Approach (ICD-10-PCS; principal; 2024-01-14 08:00)
PROC: 027034Z Dilation of Coronary Artery, One Artery with Drug-eluting Intraluminal Device, Percutaneous Approach (ICD-10-PCS; 2024-01-14 08:00)
DX: I21.02 ST elevation (STEMI) myocardial infarction involving left anterior descending coronary artery (principal); I44.7 Left bundle-branch block, unspecified; I25.10 Atherosclerotic heart disease of native coronary artery without angina pectoris; I10 Essential (primary) hypertension
CPT/HCPCS: 36415; 71045; 80053; 84484; 85025; 85730; 93005; 93458; 96361; 96365; 96367; 96375; 99152; 99153; 99285; C1725; C1769; C1874; C1887; C1894; C9600; J1644; J2250; J3010; J3490; J7030; Q9967

== ENCOUNTER 2024-01-20 14:37 | Outpatient (CLI) | payer BC, SELFPAY ==
[2024-01-20] VITALS (22 sets, daily range): BP systolic 96–119; BP diastolic 54–91; PULSE 72–89; RESP 16–21; TEMP 36.6; O2SAT 88–96
--- NOTE | 2024-01-20 14:40 | ECG_ITS ---
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 Measurements Intervals [place] Rate: 86 P: 60 TX: 132 QRS: 33 QRSD: 146 T: 74 QT: 356 QTc: 427 Interpretive Statements SINUS RHYTHM INTRAVENTRICULAR CONDUCTION DELAY [130+ ms QRS DURATION] Compared to ECG 01/14/2024 12:26:44 No significant changes Electronically Signed On 01-20-2024 16:16:09 CDT by Ricardo Mackey M.D. [id number]
--- NOTE | 2024-01-20 14:53 | ECG_ITS ---
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 Measurements Intervals [place] Rate: 84 P: 35 [place]: 128 QRS: 31 QRSD: 135 T: 90 QT: 353 QTc: 418 Interpretive Statements SINUS RHYTHM INTRAVENTRICULAR CONDUCTION DELAY [130+ ms QRS DURATION] ANTEROLATERAL MYOCARDIAL INFARCTION , PROBABLY RECENT [40+ ms Q WAVE IN I/aVL/V3-V6] ACUTE MA Compared to ECG 01/14/2024 12:26:44 Myocardial infarct finding now present Electronically Signed On 01-20-2024 16:15:57 CDT by Ricardo Mackey M.D. [id number]
--- NOTE | 2024-01-20 15:02 | W.ED.CHESTPA ---
HPI - Chest Pain General: Chief Complaint: Chest Pain Stated Complaint: chest pains Time Seen by Provider: 01/20/24 15:05 History of Present Illness: Patient presents to the ER with intermittent left chest pain worse over the last 2 days. Patient was just here approximately 6 days ago with anterior wall STEMI and had 1 stent. He says the pain is different but is still over the left side of his chest. Patient denies any diaphoresis, nausea vomiting, shortness of breath. EKG was obtained which was similar to his first EKG when he had a STEMI. He was immediately sent to Dr. Fountain. Dr. Fountain thinks it is a evolution of his prior anterior wall WI not a new WI but will take him back to the Perforating Machine Operator for diagnostic cath to make for sure the stent is still open. Review of Systems General: Reports: 10 or more systems reviewed and unremarkable except in HPI and below PFSH ED PFSH: Medical History Acute anterior wall WI Recurrent kidney stones History of esophageal dilatation Hypertension Calculus of distal left ureter Family History Father Hypertension Social History Smoking and tobacco/nicotine status: never used tobacco/nicotine Alcohol intake: current Alcohol intake frequency: holidays/special occasions only Marital status: Current occupational status: employed Physical Exam Const: COMMON NORMALS: no acute distress, average body habitus, patient oriented x3, no limitations, healthy appearing, alert and well nourished HENMT: COMMON NORMALS: normocephalic, atraumatic, hearing grossly normal bilaterally, external ears normal, Normal external nose present, moist oral mucous membranes and oropharynx normal HEAD & SCALP: normocephalic and atraumatic NOSE: Normal external nose present EXTERNAL EAR: Yes external ears normal Neck/C-Spine: COMMON NORMALS: no JVD Chest: COMMONS NORMALS: normal inspection of the chest and normal palpation of entire chest wall Resp: COMMON NORMALS: normal respiratory effort, No retractions, No use of accessory muscles and clear to auscultation bilaterally AUSCULTATION: clear to auscultation bilaterally Cardio: COMMON NORMALS: no JVD, regular rate, regular rhythm, S1 normal heart sound present, S2 normal heart sound present, No gallops present (Cardio), No clicks present (Cardio), No murmurs present (Cardio) and No rub (Cardio) RATE: regular rate RHYTHM: regular rhythm HEART SOUNDS: S1 normal heart sound present and S2 normal heart sound present GI: COMMON NORMALS: Normal to inspection, nondistended, normoactive bowel sounds present, Soft to palpation, non-tender, No hepatosplenomegaly present and no masses PALPATION: Yes Soft to palpation and Yes No hepatosplenomegaly present Neuro: COMMON NORMALS: patient oriented x3 SENSORIUM/ORIENTATION: Yes alert Course Vital Signs: Vital signs: Vital Signs Temperature 97.9 F 01/20/24 15:10 Pulse Rate 79 01/20/24 17:10 Respiratory Rate 18 01/20/24 17:10 Blood Pressure 96/54 01/20/24 17:10 Pulse Oximetry 92 01/20/24 17:10 Oxygen Delivery Me thod Room Air 01/20/24 14:46 MDM - Chest Pain Medical Decision Making EKG obtained showed ST segment elevation. EKG was immediately texted Dr. Fountain. Dr. Fountain came down and saw the patient. Feels that is not a new STEMI but a extension of his last STEMI however he will take him to the Perforating Machine Operator for a angiogram to make for sure that the stent is still open. Essie said we do not need to give him any meds this time. Differential Diagnosis Likely acute myocardial infarction; Unlikely acute massive pulmonary embolism, acute respiratory failure, cardiac arrest or sudden cardiac Medical Records I reviewed the patient's medical records. Lab Data I reviewed the patient's lab results. All radiology interpretation(s) finalized by discharge Discharge Plan Discharge Patient Disposition: Admitted As Inpatient Admit Provider: Calvin Fountain Clinical Impression: Acute anterior wall WI Condition: Stable Discharge Diet: As Directed and Cardiac Discharge Activity: Limit activity as instructed Coding Level of Care Code ED Vessel Liner for Ayde Cronin
--- NOTE | 2024-01-20 15:03 | XACV_ITS ---
Exam Room: 2 Ht: 183 cm Wt: 98 kg BSA: 2.25 m2 Gender: Male : 1980 Any Known Allergies: No known allergies Exam Priority: Routine Procedure(s): Procedure Description: Diagnostic procedure Procedure Description: Coronary Angiography Essie HOPKINS; Diagnostic Cath Status: Emergency Diagnostic Findings * Patient with recent anterior wall MT a few days ago. Stent placed to the LAD with good result. Patient has had a couple episodes of very atypical chest pain. He told his about it and she encouraged him to come to the emergency room. Upon his arrival the emergency room physician saw the EKG which shows ST elevation from leads V1 through V5 which is typical of his previous EKGs. My feeling was that it was a simple evolution of the previous MT with apical aneurysm formation. His pain was atypical. Because of the consternation and anxiety surrounding this I decided to take him to the catheterization laboratory to ensure the fact that the artery is open. * The procedure was done from the right radial artery. The left main is normal. The circumflex is normal. The LAD is wide open with excellent flow and the stent is widely patent. The diagonal which is jailed is also widely patent with minor diffuse disease. Conclusions 1. Patent left anterior descending coronary artery post myocardial infarction. Recommendations * Medical therapy as noted previously. Interventional RX Recommendation: none Diagnostic RX Recommendation: none Anticoagulation: Heparin Pressures Phase:Rest AO : 97 / 68 ( 77 ) @ 4:25:00 PM Clinical Evaluation EBL: 5mL-10mL Procedural Details Procedure Consent Obtained. Pre-Procedure Time Out. Identified patient by full name and date of as verbalized by the patient/guarantor. Does the consent match the physician's order: N/A Emergent. Accurate & Complete Informed Consent: N/A Emergent. Inpatient/Outpatient History & Physical on Chart: Yes. If H&P is completed, is and addenduem needed: N/A Emergent; If yes, is the addendum complete: N/A Emergent. Visualize and Verify Site with Patient/Guarantor: N/A. Relevant Radiology Images available: Yes. The risks, benefits, and alternatives of sedation and/or procedure were discussed by physician. The patient agrees to continue. Procedure started. [facility] Clinical Fraility Score: 3: Managing Well. 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 Chest Pain Symptom Assessment: Typical Angina Symptoms. Correct patient, site and procedure confirmed by cath team. Current diagnosis: STEMI. PERRLA. Strong, equal hand two needle machine operator bilaterally. Lungs clear x 5 lobes. IV Site on Arrival: 20 gauge in the left anticubital. IV Site on Arrival: 18 gauge in the right anticubital. IV Fluids: 0.9% NaCl at 75ml/hr. 0 mL infused prior to microbiology lab analyst. Pre Procedural Pulses: bilateral radial was 3+. Oxygen started at 2liters/min via nasal canula. right radial was prepped with chloroprep then draped in the usual sterile fashion. right groin was prepped with chloroprep then draped in the usual sterile fashion. Physician notified. Baseline sample Acquired. HR: 83 BPM. Admit Source: Emergency department. Physician arrived. Physician scrubbed in. Immediate Pre-Procedure Time Out. Correct Patient: Yes; Correct Procedure: Yes; Correct Site: Yes; Correct Patient Position: Yes; Correct Supplies: Yes; Dried Flammable Prep: Yes; Blood Products Available: No;. Lidocaine 1% infiltrated to the right radial. Arterial access obtained. A 5 serbian TIG catheter in over wire. View taken of left coronary artery. Catheter out. Physician scrubbed out. Post Procedure: Pulses reassessed and unchanged. PERRLA. Strong, equal hand two needle machine operator bilaterally. No VTE prophylaxis required. Medication's Wasted: Heparin = 3000 unit. Medication's Wasted: Lidocaine 1% = 2 mL. Medication's Wasted: Nitro = 49.8 mg. Total IV fluids: 20 mL. Post-op diagnosis: Chest pain, patent stent. Complications: None. Estimated blood loss: 5mL-10mL. Responsiveness - Normal response to verbal stimuli; alert and oriented, PERRLA. Airway - Unaffected, no intervention required; spontaneous ventilation. Circulation: W/N/L, pulses unchanged. Nausea/Vomiting: No. A TR Band was successful obtaining hemostatsis at the Right Radial artery insertion site. Medication's Wasted: Other = Fentanyl 50mcg. Procedure completed. Patient transferred by wheelchair to 1st floor. Vital chart was stopped. Access Site Site: Right Radial artery Sheath Size: 6 Fr Hemostasis Method: TR Band Hemostasis Success: Successful Procedure Medications Start: 3:17 PM Stop: 3:17 PM Medication: Fentanyl Amount: 50 mcg Route: I.V. Start: 3:19 PM Stop: 3:19 PM Medication: Versed Amount: 1 mg Route: I.V. Start: 3:22 PM Stop: 3:22 PM Medication: Versed Amount: 1 mg Route: I.V. Start: 3:22 PM Stop: 3:22 PM Medication: Nitrogylcerin Amount: 200 mcg Route: I.A. Start: 3:25 PM Stop: 3:25 PM Medication: Heparin Amount: 3000 units Route: I.V. I, the attending physician, have reviewed and verified all procedure medications. Yes, all medications given per verbal order Report Signatures Finalized by Dr. Calvin Fountain MD on 01/20/2024 03:42 PM
--- NOTE | 2024-01-20 15:05 | PC.NURSE ---
STEMI CALLED AT 1449. PATIENT TAKEN TO CORE PASTER AT 1500
--- NOTE | 2024-01-20 15:09 | P.HP_ITS ---
Providers/Chief Complaint Admitting Physician: Essie Primary Care Provider: Leonel Man MD Chief Complaint: chest pains History of Present Illness Perry De Jesus is a 43 year old male who was here few days ago with acute anterior wall myocardial infarction. There was a delay in getting him to the catheterization laboratory early in the morning. He had a thrombotic occlusion of his mid LAD. I stented this vessel but required significant amounts of nicardipine and intracoronary Aggrastat in order to clear the thrombus. He was left with a wall motion disturbance. There was some significant stress in his life as several days prior to that he witnessed one of his friends on his tractor and did CPR on the fellow. 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 He has done well since but on 2 occasions he has had some atypical pain which was different than what he had the other morning. His was very nervous about the entire situation. After he told her today that he had another episode of chest pain she basically insisted that he come back into the emergency room. When he arrived his EKG shows the same findings that he had the other morning with ST elevation and a left bundle branch block. It is likely a simple evolution of the previous TX but upon the emergency room seeing the EKG a STEMI alert was called. I came to see him and the pain is clearly different and the other symptoms associated with that are not present. My suspicion is that it is simply a typical evolution of the anterior wall TX however I cannot be 100% sure of this. His is extremely nervous about this and so we have decided to just take him to the catheterization laboratory to be sure. Review of Systems Narrative: Negative Medications/Allergies Home Medications Medication Instructions Recorded Confirmed Last Taken Type lansoprazole 30 mg capsule,delayed 30 mg PO BID 02/05/21 01/14/24 02/05/21 History release olmesartan 40 mg tablet 40 mg PO DAILY #30 tabs 04/01/23 01/14/24 01/14/24 04:00 Rx aspirin 81 mg tablet,delayed 81 mg PO DAILY #100 tabs 01/15/24 Unknown Rx release atorvastatin 40 mg tablet 80 mg (2 x 40 mg) PO BEDTIME #90 01/15/24 Unknown Rx tabs clopidogrel 75 mg tablet 75 mg PO DAILY #90 tabs 01/15/24 Unknown Rx metoprolol tartrate 25 mg tablet 25 mg PO BID #180 tabs 01/15/24 Unknown Rx Allergies Allergy/AdvReac Type Severity Reaction Status Date / Time No Known Allergies Allergy Verified 01/14/24 04:44 PFSH Acute PFSH: Medical History Acute anterior wall TX Recurrent kidney stones History of esophageal dilatation Hypertension Calculus of distal left ureter Family History Father Hypertension Social History Smoking and tobacco/nicotine status: never used tobacco/nicotine Alcohol intake: current Alcohol intake frequency: holidays/special occasions only Marital status: Current occupational status: employed Vitals/I&O/Wt Last Vital Signs Temp 97.9 F 01/20/24 14:46 Pulse 89 01/20/24 14:46 Resp 16 01/20/24 14:46 BP 112/77 01/20/24 14:46 Pulse Ox 96 01/20/24 14:46 O2 Del Method Room Air 01/20/24 14:46 Weight last 48 hrs Weight 216 lb Physical Exam Narrative: GENERAL: In general he looks much improved from the other morning HEENT: Exam within normal limits. NECK: Supple without jugular vein distention. The carotid upstroke is normal without bruits. BACK: Exam normal. LUNGS: Clear. HEART: Regular rate and rhythm. ABDOMEN: Benign without organomegaly or tenderness. EXTREMITIES: No edema. NEUROLOGIC: Exam normal. SKIN: Unremarkable. A&P Assessment and plan (1) Hypertension: (2) Acute anterior wall TX: (3) ST elevation myocardial infarction (STEMI): Plan EKG is the same but this could very well be just a simple evolution of the pre vious TX. Because of the consternation and anxiety associated with this we will take him to the Laboratory Inspector to assess his LAD. Attestations Medical Necessity Statement*: Admit for cardiac catheterization and Moderate Time for a total of 30 minutes, includes reviewing past or interval history, examining/interviewing patient, placing orders, counseling patient/family/other support, updating patient/family/other support, discussing plan of care with staff, communicating with other healthcare providers, documenting encounter and coordinating care Diagnoses Hypertension I10 Acute anterior wall TX I21.09 ST elevation myocardial infarction (STEMI) I21.3
--- NOTE | 2024-01-20 17:12 | P.DS_ITS ---
Discharge Providers Date of Admission: 01/20/24 15:45 Date of Discharge: January 20, 2024 Attending Provider at Admission: Calvin Fountain MD Attending Provider at Discharge: Calvin Fountain MD Primary Care Provider: Leonel Man MD Diagnoses at Discharge Discharge Diagnosis (1) Hypertension: Status: Acute (2) Acute anterior wall AK: Status: Acute (3) ST elevation myocardial infarction (STEMI): Status: Acute Reason for Visit Reason for Visit: chest pains Brief History: This young man was just in the hospital until a few days ago with an acute anterior wall myocardial infarction. He had a stent placed to his LAD. He did very well and went home about 24 hours after the insult. He has been doing well but has had a couple of episodes of very atypical pain. He told his about them today and she brought him to the emergency room. When he arrived the EKG showed ST elevation from leads V1 through V4 which prompted the emergency room to call a STEMI alert. I was not suspicious when I was 4 called to the emergency room thinking that it likely was simply an evolution of the anterior wall AK. His pain was very atypical. Because of the anxiety associated with the previous myocardial infarction and the continued persistent EKG abnormalities I chose to take him to the catheterization laboratory to be sure the artery is patent. Hospital Course Hospital Course Angiography from the right radial artery revealed the stent to be widely patent with good JANINE-3 flow in the artery. The sheath was removed. The time of discharge there was no complication of the right radial artery entry site. Physical Exam Narrative: GENERAL: In general he looks and feels well HEENT: Exam within normal limits. NECK: Supple without jugular vein distention. The carotid upstroke is normal without bruits. BACK: Exam normal. LUNGS: Clear. HEART: Regular rate and rhythm. ABDOMEN: Benign without organomegaly or tenderness. EXTREMITIES: No edema. The right radial artery entry site is flat, dry without hematoma or bleeding NEUROLOGIC: Exam normal. SKIN: Unremarkable. Discharge Data Studies Completed and Pending Completed Studies During Hospitalization Category Date Time Status HEALTH EDUCATION SPECIALIST request for service Stat Exams 01/20/24 15:03 Completed Procedures Performed Coronary angiography Vitals Last Vital Signs Temp 97.9 F 01/20/24 15:10 Pulse 89 01/20/24 15:10 Resp 16 01/20/24 15:10 BP 112/77 01/20/24 15:10 Pulse Ox 96 03/13/24 15:10 O2 Del Method Room Air 01/20/24 14:46 Discharge Plan Discharge Patient Disposition: Home Condition: Stable Prescriptions: Continued olmesartan 40 mg tablet 40 mg PO DAILY Qty: 30 11RF lansoprazole 30 mg capsule,delayed release(DR/EC) 30 mg PO BID aspirin 81 mg Tablet,Delayed Release (Dr/Ec) 81 mg PO DAILY Qty: 100 0RF atorvastatin 40 mg Tablet 80 mg PO BEDTIME Qty: 90 0RF clopidogrel 75 mg Tablet 75 mg PO DAILY Qty: 90 0RF metoprolol tartrate 25 mg Tablet 25 mg PO BID Qty: 180 0RF Discharge Orders: Discharge Order (Routine); Ordered 01/20/24 Ordered By: Calvin Fountain Referrals: Leonel Man MD [Primary Care Provider] - Discharge Diet: As Directed and Cardiac Discharge Activity: Limit activity as instructed Patient Instructions: Opioid Safety Activity Restrictions/Additional Instructions: No lifting over 5 pounds for 2 days for the right upper extremity. Previous activity restrictions put in place from the previous hospitalization still apply. Discharge Attestations Time Spent in Discharge Care*: less than 30 min Quality Metrics Clinical Quality Measures [ No reported AMI, CVA or VTE this stay] Coding Level of Care Code 11889 Total time (in minutes) for Discharge: 30 Diagnoses Hypertension I10 Acute anterior wall AK I21.09 ST elevation myocardial infarction (STEMI) I21.3
--- NOTE | 2024-01-20 19:39 | PC.NURSE ---
Discharge Note Patient discharged to [home] via [ambultation to POV] accompanied by [his ]. Discharge instructions reviewed with patient and/or customer service representative teacher. Mobile pharmacy medications and/or prescriptions provided. Belongings/home medications returned.
== END 2024-01-20 19:28 | disposition home or self-care (01) ==
LOC: ER 14:41 → CCL 15:05 → CSU 17:11 → OPCSU 01-21 06:02 → CSU 01-21 06:03
PROVIDERS: Emergency Provider Emergency Medicine; PCP Family Medicine; Visit Provider Internal Medicine Cardiovascular Disease
DX: I10 Essential (primary) hypertension (principal); I21.09 ST elevation (STEMI) myocardial infarction involving other coronary artery of anterior wall; I21.3 ST elevation (STEMI) myocardial infarction of unspecified site; Z95.5 Presence of coronary angioplasty implant and graft; Z79.82 Long term (current) use of aspirin
CPT/HCPCS: 93005; 96375; 99152; C1769; C1887; C1894; G0378; J1644; J2250; J3010; J3490; J7030; Q9967

== ENCOUNTER → 2024-01-25 13:19 | Outpatient (BNVA) | payer BC, SELFPAY | PROVIDERS: PCP Family Medicine; Visit Provider Family Medicine | DX: I21.09 ST elevation (STEMI) myocardial infarction involving other coronary artery of anterior wall (principal); I25.10 Atherosclerotic heart disease of native coronary artery without angina pectoris | CPT/HCPCS: 80048; 85025 ==

== ENCOUNTER 2024-02-17 07:45 | Outpatient (CLI) | payer BC, SELFPAY ==
--- NOTE | 2024-02-17 08:00 | USCV_ITS ---
Neal Perry Age: 43 Gender: M : 1980 Exam Date: 02/17/2024 07:52 Ordering Phys: Leonel Man MD Technologist: [place] [facility] [place]: hx of mi BP: 120 / 70 HR: 65 Rhythm: Sinus Technical Quality: Adequate MEASUREMENTS (Male / Female) Normal Values 2D ECHO LV Diastolic Diameter PLAX 5.9 cm 4.2 - 5.9 / 3.9 - 5.3 cm IVS Diastolic Thickness 0.9 cm 0.6 - 1.0 / 0.6 - 0.9 cm IVS Systolic Thickness 1.1 cm LVPW Diastolic Thickness 1.1 cm 0.6 - 1.0 / 0.6 - 0.9 cm LVPW Systolic Thickness 1.5 cm LVOT Diameter 2.0 cm LV Ejection Fraction 2D Teich 52.2 % LV Ejection Fraction MOD 2C 35.9 % LV Ejection Fraction 2C AL 33.8 % LA Diameter 3.5 cm RA Systolic Volume 4C AL 39.3 ml RA Systolic Volume 4C MOD 35.9 ml Aorta at Sinotubular Diameter 2.7 cm IVC Diameter 1.8 cm M-MODE LA Ao Ratio MM 1.7 AV Cusp Separation MM 2.5 cm DOPPLER AV Peak Velocity 126.0 cm/s LVOT Peak Velocity 77.0 cm/s AV Area Cont Eq vti 2.1 cm squared AV Area Cont Eq pk 2.0 cm squared MV Area PHT 5.4 cm squared Mitral E to A Ratio 1.2 TR Peak Velocity 171.0 cm/s TR Peak Gradient 11.7 mmHg TV Peak E Velocity 83.0 cm/s Right Atrial Pressure 3.0 mmHg Pulmonary Artery Systolic Pressu 14.7 mmHg PV Peak Velocity 111.0 cm/s FINDINGS Left Ventricle Left ventricle is normal size. LV systolic function is moderate to severely reduced with EF of 30 to 35%. Severe global hypokinesis. Right Ventricle Normal size and function Right Atrium Normal size Left Atrium Normal size Mitral Valve Structurally normal mitral valve. Mild mitral regurgitation. Aortic Valve Structurally normal aortic valve. No significant stenosis. Tricuspid Valve Insufficient TR jet to evaluate RVSP Pulmonic Valve Not well-visualized. Pericardium Normal Aorta Normal in size IVC Appears to be normal CONCLUSIONS LV systolic function is moderate to severely reduced with EF of 30 to 35% Mild mitral regurgitation. Ricardo Mackey MD (Electronically Signed) Final Date: 20 February 2024 22:09 S
== END 2024-02-17 07:46 | disposition home or self-care (01) ==
LOC: RAD 07:45
PROVIDERS: PCP Family Medicine; Visit Provider Family Medicine
DX: I25.10 Atherosclerotic heart disease of native coronary artery without angina pectoris (principal); I21.09 ST elevation (STEMI) myocardial infarction involving other coronary artery of anterior wall; I34.0 Nonrheumatic mitral (valve) insufficiency
CPT/HCPCS: 93306

== ENCOUNTER → 2024-04-27 10:09 | Outpatient (BNVA) | payer BC, SELFPAY | PROVIDERS: PCP Family Medicine; Visit Provider Family Medicine | DX: I10 Essential (primary) hypertension (principal); I25.5 Ischemic cardiomyopathy | CPT/HCPCS: 80053; 85025 ==

== ENCOUNTER 2024-07-27 09:50 | Outpatient (CLI) | payer OTHER, SELFPAY ==
--- NOTE | 2024-07-27 09:54 | XRR_ITS ---
PROCEDURE INFORMATION: Exam: XR Right Foot Exam date and time: 07/27/2024 10:00 AM Age: 43 years old Clinical indication: Injury or trauma; Other: Fell off back of truck; Blunt trauma; Foot; Right; Injury details: Possible fifth metatarsal fracture after falling off the back of a truck last week. ; Additional info: Possible 4th metatarsal fracture TECHNIQUE: Imaging protocol: Radiologic exam of the right foot. Views: 1 or 2 views. COMPARISON: CR XR tibia fibula RT 2V [id number] 01/09/2021 3:47 PM FINDINGS: Bones/joints: There is an acute transverse nondisplaced fracture involving the 4th proximal phalanx. No other fracture noted. Mild arthritic spurring involves the midfoot joints. Soft tissues: Normal. XR/XR foot RT 2V [id number] IMPRESSION: Acute fracture of the 4th proximal phalanx
== END 2024-07-27 09:51 | disposition home or self-care (01) ==
PROVIDERS: PCP Family Medicine; Visit Provider Family Medicine
DX: S92.514A Nondisplaced fracture of proximal phalanx of right lesser toe(s), initial encounter for closed fracture (principal); V58.2XXA Person on outside of pick-up truck or van injured in noncollision transport accident in nontraffic accident, initial encounter
CPT/HCPCS: 73620

== ENCOUNTER 2024-08-29 13:59 | Outpatient (CLI) | payer OTHER, SELFPAY ==
--- NOTE | 2024-08-29 14:00 | USCV_ITS ---
NealPerry Age: 43 Gender: M : 1980 Exam Date: 08/29/2024 14:21 Ordering Phys: Leonel Man MD Technologist: [place] [facility] [place] Indication: ef BP: 120 / 80 HR: Rhythm: Sinus Technical Quality: Adequate MEASUREMENTS (Male / Female) Normal Values 2D ECHO LVOT Diameter 2.0 cm LV Ejection Fraction MOD 4C 45.1 % LV Ejection Fraction MOD 2C 48.2 % LV Ejection Fraction 2C AL 48.0 % LA Diameter 4.9 cm RA Systolic Volume 4C AL 43.1 ml RA Systolic Volume 4C MOD 41.0 ml LA Sys Volume AL 60.9 cm cubed LA Sys Volume Index AL 26.2 cm cubed/m squared Aorta at Sinotubular Diameter 2.4 cm IVC Diameter 2.1 cm M-MODE LA Ao Ratio MM 1.2 AV Cusp Separation MM 2.1 cm FINDINGS Left Ventricle Moderately increased left ventricular cavity size. Severely decreased left ventricular systolic function. Left ventricular ejection fraction is estimated at 40 %. Moderately decreased left ventricular systolic function. Right Ventricle Right Atrium Left Atrium Mitral Valve Aortic Valve Tricuspid Valve Pulmonic Valve Pericardium Aorta IVC CONCLUSIONS Please note that this is a limited echo Moderately increased left ventricular cavity size. Severely decreased left ventricular systolic function. Left ventricular ejection fraction is estimated at 40 %. Moderately decreased left ventricular systolic function. There is no pericardial effusion. Right atrial pressure is around 5 mm of mercury. Irasema Lux MD (Electronically Signed) Final Date: 29 August 2024 20:42 S
== END 2024-08-29 14:00 | disposition home or self-care (01) ==
LOC: RAD 14:01
PROVIDERS: PCP Family Medicine; Visit Provider Family Medicine
DX: I50.20 Unspecified systolic (congestive) heart failure (principal); I50.30 Unspecified diastolic (congestive) heart failure; I25.5 Ischemic cardiomyopathy
CPT/HCPCS: 93308

== ENCOUNTER 2024-10-03 06:58 | Outpatient (RCR) | payer OTHER, SELFPAY | END 2024-10-08 23:59 | disposition home or self-care (01) | LOC: SPT 06:58 | PROVIDERS: PCP Family Medicine; Visit Provider Family Medicine | DX: S76.301D Unspecified injury of muscle, fascia and tendon of the posterior muscle group at thigh level, right thigh, subsequent encounter (principal); X58.XXXD Exposure to other specified factors, subsequent encounter | CPT/HCPCS: 97161 ==

== ENCOUNTER 2024-10-09 06:00 | Outpatient (RCR) | payer OTHER, SELFPAY | END 2024-11-04 23:59 | disposition home or self-care (01) | LOC: SPT 06:00 | PROVIDERS: PCP Family Medicine; Visit Provider Family Medicine | DX: S76.301D Unspecified injury of muscle, fascia and tendon of the posterior muscle group at thigh level, right thigh, subsequent encounter (principal); X58.XXXD Exposure to other specified factors, subsequent encounter | CPT/HCPCS: 97110; 97140; G0283 ==

== ENCOUNTER → 2025-01-11 10:56 | Outpatient (BNVA) | payer OTHER, SELFPAY | PROVIDERS: PCP Family Medicine; Visit Provider Family Medicine | DX: I10 Essential (primary) hypertension (principal); I25.10 Atherosclerotic heart disease of native coronary artery without angina pectoris; I25.5 Ischemic cardiomyopathy | CPT/HCPCS: 80053; 80061; 85025 ==

== ENCOUNTER 2025-04-10 08:19 | Outpatient (CLI) | payer OTHER, SELFPAY ==
[2025-04-10 09:27] LABS: Chol HDL Ratio 4.16 mg/dL (1.0-5.00); Cholesterol 204 mg/dL (0-200); HDL Cholesterol 49 mg/dL (60-100); LDL Cholesterol Calculated 118 mg/dL (50-129); LDL HDL Ratio 2.41 RATIO (0.00-3.22); Triglycerides 186 mg/dL (0-150)
== END 2025-04-10 08:20 | disposition home or self-care (01) ==
PROVIDERS: PCP Family Medicine; Visit Provider Nurse Practitioner Family
DX: I21.09 ST elevation (STEMI) myocardial infarction involving other coronary artery of anterior wall (principal)
CPT/HCPCS: 36415; 80061

== ENCOUNTER 2025-08-27 08:17 | Observation (INO) | payer OTHER, SELFPAY ==
[2025-08-27] VITALS (35 sets, daily range): BP systolic 106–169; BP diastolic 56–104; PULSE 73–94; RESP 12–31; TEMP 36.7–37.1; O2SAT 90–98; BMI 32.1; BMI 34.2
--- NOTE | 2025-08-27 08:16 | ECG_ITS ---
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 Measurements Intervals Kimberly Rate: 75 P: 55 DC: 134 QRS: 10 QRSD: 154 T: 88 QT: 389 QTc: 434 Interpretive Statements SINUS RHYTHM WITH SINUS ARRHYTHMIA INTRAVENTRICULAR CONDUCTION DELAY [130+ ms QRS DURATION] Compared to ECG 01/20/2024 14:53:18 Myocardial infarct finding no longer present Electronically Signed On 08-29-2025 19:29:58 CDT by Fiona Mariscal M.D. [email or web address]
--- NOTE | 2025-08-27 08:19 | XRR_ITS ---
PROCEDURE INFORMATION: Exam: XR Chest Exam date and time: 08/27/2025 8:21 AM Age: 44 years old Clinical indication: Pain; Chest pressure; Prior surgery; Surgery date: 6+ months; Surgery type: Cardic stent; Additional info: Chest pain TECHNIQUE: Imaging protocol: Radiologic exam of the chest. Views: 1 view. COMPARISON: CR XR chest 1V portable [id number] 01/14/2024 4:51 AM FINDINGS: Lungs: Unremarkable. No consolidation. Pleural spaces: No pneumothorax. Heart/Mediastinum: Unremarkable. No cardiomegaly. Bones/joints: Unremarkable. XR/XR chest 1V portable [id number] IMPRESSION: No acute findings.
--- OUTSIDE RECORDS SUMMARY | 2025-08-27 08:21 | XMS_ITS | Encounter Summary ---
Author Organization [facility] Address [address] [place] [address] Care Team Providers Care Contract Designer Name Role Phone Leonel Man MD Primary Care Provider [phone] Encounter Details Date Type Department Care Team (Latest Contact Info) Description 12/27/2003 Outpatient Historical [facility] Ear, Nose and Throat [address] [place] 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
--- OUTSIDE RECORDS SUMMARY | 2025-08-27 08:21 | XMS_ITS | Encounter Summary ---
Author Organization [facility] Address [address] [place] [address] Care Team Providers Care Burn Table Operator Name Role Phone Leonel Man MD Primary Care Provider [phone] Encounter Details Date Type Department Care Team (Late st Contact Info) Description 06/22/2004 Emergency [facility] Emergency Department [address] [place] [address] Nan Mckenzie MD [address] [place], [place] [address] OPEN WOUND KNEE/LEG/ANKLE (Primary Dx) Social History Tobacco Use Types Packs/Day Years Used Date Smoking Tobacco: Never Assessed Sex and Gender Information Value Date Recorded Sex Assigned at Not on file 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
--- OUTSIDE RECORDS SUMMARY | 2025-08-27 08:21 | XMS_ITS | Encounter Summary ---
Author Organization [facility] Address [address] [place] [address] Care Team Providers Care Sand Caster Apprentice Name Role Phone Leonel Man MD Primary Care Provider [phone] Encounter Details Date Type Department Care Team (Late st Contact Info) Description 12/27/2003 Outpatient Historical [facility] Ear, Nose and Throat 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
--- OUTSIDE RECORDS SUMMARY | 2025-08-27 08:21 | XMS_ITS | Clinical Summary ---
Author Organization [facility] Address [address] [facility] Attn: Epic Prelude ADT RANJITH NARANJO [address] Care Team Providers Care Burial Agent Name Role Phone Leonel Man MD Primary Care Provider Allergies No known active allergies Medications olmesartan (BENICAR) 40 mg tablet 0 Active hydroCHLOROthia zide (HYDRODIURIL) 12.5 mg tablet 0 Active lansoprazole (PREVACID) 30 mg Capsule, Delayed Release(E.C.) Take 1 Capsule (30 mg) by mouth 2 times daily. 60 Capsule 11 7 Active fluticasone propionate (Flovent HFA) 220 mcg/actuation HFA Aerosol Inhaler FOR DIRECTIONS ON HOW TO TAKE THIS MEDICINE, READ THE ENCLOSED MEDICATION INFORMATION FORM 36 Gram 3 7 Active Active Problems Problem Noted Date Diagnosed Date Physical exam 02/24/2020 Family History Medical History Relation Name Comments Colon Cancer Neg Hx Social History Tobacco Use Types Packs/Day Years Used Date Smoking Tobacco: Never Alcohol Use Standard Drinks/Week Comments Yes 0 (1 standard drink = 0.6 oz pur e alcohol) Sex and Gender Information Value Date Recorded Sex Assigned at Not on file Legal Sex Male 2:58 PM EMERGENCY MEDICAL SERVICES COORDINATOR Gender Identity Not on file Sexual Orientation Not on file Last Filed Vital Signs Vital Sign Reading Time Taken Comments Blood Pressure 131/83 02/24/2020 7:52 AM CDT Pulse 61 02/24/2020 7:52 AM CDT Temperature 36.7 C (98.1 F) 03/26/2016 8:28 AM CDT Respiratory Rate 18 02/24/2020 7:52 AM CDT Oxygen Saturation - - Inhaled Oxygen Concentration - - Weight 98.8 kg (217 lb 12.8 oz) 02/24/2020 7:52 AM CDT Height 180.3 cm (5' 11 ) 02/24/2020 7:52 AM CDT Body Mass Index 30.38 02/24/2020 7:52 AM CDT Plan of Treatment Health Maintenance Due Date Last Done Comments DTAP/TDAP/TD VACCINES (1 - Tdap) 1997 HEPATITIS B VACCINES (1 of 3 - 19+ 3-dose series) 1997 COLORECTAL SCREENING 2023 Colorectal Cancer Screening 2023 FIT-DNA Q 3 years 2023 FIT/FOBT Q 1 year 2023 Flex Sig/CT Colonography Q 5 years 2023 INFLUENZA VACCINE (#1) 2025 HPV VACCINES Aged Out No longer eligi ble based on patient's age to complete this topic Care Teams Burial Agent Relationship Specialty [place] [address] [place] [phone] PCP - General 05/16/09
--- OUTSIDE RECORDS SUMMARY | 2025-08-27 08:21 | XMS_ITS | Encounter Summary ---
Author Organization [facility] Address [address] [place] [address] Care Team Providers Care Banquet Food Server Name Role Phone Leonel Man MD Primary Care Provider [phone] Encounter Details Date Type Department Care Team (Latest Contact Info) Description 11/15/2003 Outpatient Historical [facility] Ear, Nose and Throat [address] [place] 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
--- OUTSIDE RECORDS SUMMARY | 2025-08-27 08:21 | XMS_ITS | Data Portability ---
Author Organization [facility] Ervin Burgess [facility] Chelsey Logan [facility] Address [address] [place] [address] Care Team Providers Care Laboratory Technical Specialist Name Role Phone SARINA HARDING Primary Care Provider Assessment No assessment recorded. Plan of Treatment Reminders Order Date Submit Date Provider Last Modified By Organization Details Last Modified Time Details Appointments None recorded. Lab None recorded. Referral None recorded. Procedures None recorded. Surgeries None recorded. Imaging None recorded. Medication Orders Bactrim DS 800 mg-160 mg tablet 025 025 [facility] #[id number], [address], [facility], [place], [address], 5 05:01:58 Patient TargetsNo targets recorded. Patient InstructionsNo instructions recorded. Reason for Referral None Reported. Problems Name Problem SNOMED Code Status Onset Date Resolution Date Notes Provider Name and Address Organization Details Recorded Time Allergic rhinitis 02126602 Active 2017 Allergic Rhinitis; 8 12:33PM by Holly Mera LPN, Office Visit; Promoted; acuity set as *; Not Available [facility] 3 03:16:25 Problem Notes None recorded. Medical Equipment None Reported. Allergies No known drug allergies Medications Name Sig Start Date Stop Date Status Note LastModified by Organization Details LastModified Time atorvasta tin 80 mg tablet TAKE 1 TABLET BY MOUTH EVERY DAY active Not Available Not Available No t Available clopidogr el 75 mg tablet TAKE 1 TABLET BY MOUTH EVERY DAY 04/21 completed Not Available Not Available Not Available ciproflox acin 500 mg tablet TAKE 1 TABLET BY MOUTH TWICE A DAY 04/21 completed Not Available Not Available Not Available lansopraz ole 30 mg capsule,d elayed release TAKE 1 CAPSULE BY MOUTH EVERY DAY active Not Available Not Available No t Available losartan 25 mg tablet TAKE 1 TABLET BY MOUTH EVERY DAY 04/21 completed Not Available Not Available Not Available nitroglyc yenni 0.4 mg sublingua l tablet PLACE 1 TABLET UNDER TONGUE EVERY 5 MINS, UP TO 3 DOSES NEEDED FOR CHEST PAIN active Not Available Not Available No t Available metoprolo l succinate ER 25 mg tablet,ex tended release 24 hr TAKE 1 TABLET BY MOUTH EVERY DAY active Not Available Not Available No t Available Naprosyn 500 mg tablet BID/PRN 04/21 completed Recorded 05/14/20 3:57PM by Sonia Emerson LPN, Office Visit; Refill Quantity : 60; Tab; Not Available Not Available Not Available amoxicill in 500 mg-potass ium clavulana te 125 mg tablet TAKE 1 TABLET BY MOUTH THREE TIMES A DAY 04/21 completed Not Available Not Available Not Available Bactrim DS 800 mg-160 mg tablet Take 1 tablet every 12 hours by oral route for 7 days. 05/05 completed Not Available Not Available Not Available olmesarta n 40 mg tablet TAKE 1 TABLET DAILY 04/21 completed Not Available Not Available Not Available metoprolo l tartrate 25 mg tablet TAKE 1 TABLET BY MOUTH TWICE A DAY 04/21 completed Not Available Not Available Not Available aspirin active Not Available Not Avail able Not Available Benicar HCT qd 04/21 completed 0; Recorded 10/26/20 12:33PM by Holly Mera LPN, Office Visit; Not Available Not Available Not Available Flovent HFA qd 04/21 completed 0; Recorded 10/26/20 18 12:33PM by Holly Mera LPN, Office Visit; Not Available Not Available Not Available Vitals Date Recorded Body weight Body mass index (BMI) Body height Body temperature Heart rate Oxygen saturation Oxygen saturation in Arterial blood by Pulse oximetry Systolic And Diastolic Provider Name and Address Organization Details Last Updated DateTime 628291. 58 g 31.5 kg/m2 180.34 cm 98.2 [degF] 78 /min 98 % 98 % 158/86 mm[Hg] Estefania Smith [facility] 16:40:15 Social History Question Answer Notes LastModified by Organizat ion Details LastModified Time Tobacco Smoking Status Never Smoker [facility] 04/21/2025 16:34:23 What Was The Date Of Your Most Recent Tobacco Screening? 04/21/2025 [email or web address] Information not available 04/21/2025 Sex: Unknown Functional Status None recorded. Mental Status None recorded. Family History Nothing Reported. Medical History No medical history recorded. Immunizations Vaccine Type Date Status Note Provider Nam e and Address Organization Details Recorded Time Tdap 10/19/2024 completed Not Available [facility] 04/21/2025 16:31:13 Td (adult) 10/26/2018 completed Not Available [facility] 06/06/2023 02:33:23 Past Encounters Encounter ID Performer Location Encounter Start Date Encounter Closed Date Diagnosis/Indication Diagnosis SNOMED-CT Code Diagnosis ICD10 Code Diagnosis IMO Codes Diagnosis Note [id number] [facility] ([facility] [address] [place] [phone] 04/21/2025 16:29:38 04/24/2025 11:03:08 Cellulitis of right thumb [id number] L03.011 093720 Discussed use of warm compress to the area for 5 minutes 3-4 times a day.Wash with soap and water daily.Do NOT poke/squee ze the area.F/u if you develop increased swelling, redness, pain or concerns arise. Health Concerns Section Related Observation LastModified by Organization Detai ls LastModified Time None Recorded Concern Status LastModified by Organization Details LastModified Time None Recorded Advance Directives Directive None Recorded Payers Insurance Date Sequence Insurance Name Policy Number Policy Hall Covered Member ID Hall Member ID Guarantor Name 04/21/2025 1 [facility]UL[facility]A CRUZ [facility] [employer] [employer] [employer] [facility] [id number] Perry De Jesus [id number] Perry De Jesus Notes Date Note Type Note Provider Name and Address Organization Details Recorded Time 04/21/2025 text/html ROS as noted in the HPI walk in ptPts right thumb is swollen and bruised for 5 days. No injury. Thought a bug bite him initially but the redness is swelling, now has drainage the thumb is tender. Denies trauma to the thumb. SRINI MENENDEZ, [address] [address] [place], [address], [facility] 04/23/2025 09:12:44
--- OUTSIDE RECORDS SUMMARY | 2025-08-27 08:21 | XMS_ITS | Encounter Summary ---
Author Organization [facility] Address [address] [place] [address] Care Team Providers Care Real Estate Development Manager Name Role Phone Leonel Man MD Primary Care Provider Encounter Details Date Type Department Care Team (Latest Contact Info) Description 01/19/2007 Outpatient Historical [facility] Urology- [address]tr[address], 3[address] [place] [address] Terry East MD [address] [place] [address] [address] [place] [address] Sterilization (Primary Dx) Social History Tobacco Use Types Packs/Day Years Used Date Smoking Tobacco: Never Assessed Sex and Gender Information Value Date Recorded Sex Assigned at Not on file 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
--- OUTSIDE RECORDS SUMMARY | 2025-08-27 08:21 | XMS_ITS | Encounter Summary ---
Author Organization [facility] Address [address] [place] [address] Care Team Providers Care Ship Mate Name Role Phone Leonel Man MD Primary Care Provider [phone] Encounter Details Date Type Department Care Team (Late st Contact Info) Description 06/25/2004 Emergency [facility] Emergency Department [address] [place] [place] [address] Genny Covington, [place] NO ADDRESS ON FILE FOLLOW-UP EXAM NEC (Primary Dx) Social History Tobacco Use Types Packs/Day Years Used Date Smoking Tobacco: Never Assessed Sex and Gender Information Value Date Recorded Sex Assigned at Not on file 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
--- OUTSIDE RECORDS SUMMARY | 2025-08-27 08:21 | XMS_ITS | Encounter Summary ---
Author Organization [facility] Address [address] [place] [address] Care Team Providers Care Fuel Handler Name Role Phone Leonel Man MD Primary Care Provider Encounter Details Date Type Department Care Team (Latest Contact Info) Description 12/23/2006 Outpatient Historical [facility] Urology- [address]tr[address], 3[address] [place] [address] Terry East MD [address] [place] [address] [address] [place] [address] Sterilization (Primary Dx) Social History Tobacco Use Types Packs/Day Years Used Date Smoking Tobacco: Never Assessed Sex and Gender Information Value Date Recorded Sex Assigned at Not on file 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
--- OUTSIDE RECORDS SUMMARY | 2025-08-27 08:21 | XMS_ITS | Clinical Summary ---
Author Organization Florger Alarcon [facility] Building Address [address] [place] [phone] Phone Care Team Providers Care Culinary Specialist Name Role Phone Leonel Man MD Primary Care Provider [phone] Allergies No known active allergies Medications lansoprazole (PREVACID) 30 mg Capsule, Delayed Release(E.C.) Take 1 Capsule (30 mg) by mouth 2 times daily. 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 Gender Identity Not on file Sexual Orientation Not on file Last Filed Vital Signs Vital Sign Reading Time Taken Comments Blood Pressure 131/83 02/24/2020 7:52 AM CDT Pulse 61 02/24/2020 7:52 AM CDT Temperature 36.7 C (98.1 F) 03/26/2016 8:28 AM CDT Respiratory Rate 18 02/24/2020 7:52 AM CDT Oxygen Saturation 96% 03/26/2016 10: 00 AM CDT Inhaled Oxygen Concentration - - Weight 98.8 [...] on patient's age to complete this topic Advance Directives For more information, please contact: [phone] * Full Code (Latest Code Status on File) Date Activated Date Inactivated Comments 03/26/2016 8:27 AM 03/26/2016 12:14 PM * Full Code Date Activated Date Inactivated Comments 01/23/2016 10:17 AM 01/23/2016 2:14 PM * Full Code Date Activated Date Inactivated Comments 12/12/2015 9:49 AM 12/12/2015 1:16 PM Care Teams Culinary Specialist Relationship Specialty [place] [address] [place] [id number] PCP - General 05/16/09
--- NOTE | 2025-08-27 08:23 | ED_ITS ---
HPI - Chest Pain 2 General: Chief Complaint: Chest Pain Stated Complaint: Chest pains Time Seen by Provider: 08/27/25 08:18 History of Present Illness: 44-year-old man with a history of hart ry artery disease, ischemic cardiomyopathy, kidney stones and hypertension who presents to the emergency room with chest pain. He says he has a central left dullness. It has been coming and going for a while now. This morning it was a little bit worse. His had him take a nitro and brought him to the emergency room. He is a bit hypertensive on presentation. He says he had a heart attack a little over a year ago. Was recently taken off his Plavix. No cough. No fever. No nausea or vomiting. No abdominal pain. No altered mental status. Related Data Previous Rx's ?Medication ?Instructions ?Recorded aspirin 81 mg tablet,delayed 81 mg PO DAILY #100 tabs 01/15/24 release nitroglycerin 0.4 mg sublingual 0.4 mg sublingual Q5M PRN chest 01/25/24 tablet pain #20 tabs olmesartan 40 mg tablet 40 mg PO DAILY #30 tabs 02/07 04/02 metoprolol tartrate 25 mg tablet See Rx Instructions . Route 04/05/25 .COMPLEX #180 tabs atorvastatin 40 mg tablet 40 mg PO DAILY #90 tabs 04/09 05/03 lansoprazole 30 mg capsule,delayed 30 mg PO DAILY #90 caps 07/17/25 release Allergies Allergy/AdvReac Type Severity Reaction Status Date / Time No Known Allergies Allergy Verified 08/27/25 08:20 Review of Systems 2 Narrative: Constitutional symptoms: Negative except as documented in HPI. Skin symptoms: Negative except as documented in HPI. Eye symptoms: Negative except as documented in HPI. ENMT symptoms: Negative except as documented in HPI. Respiratory symptoms: Negative except as documented in HPI. Cardiovascular symptoms: Negative except as documented in HPI. Gastrointestinal symptoms: Negative except as documented in HPI. Genitourinary symptoms: Negative except as documented in HPI. Musculoskeletal symptoms: Negative except as documented in HPI. Neurologic symptoms: Negative except as documented in HPI. Psychiatric symptoms: Negative except as documented in HPI. Endocrine symptoms: Negative except as documented in HPI. PFSH ED 2 PFSH: Medical History (Updated 08/27/25 @ 11:12 by Marielena Gr MD) Ischemic cardiomyopathy Coronary artery disease Acute anterior wall CA Recurrent kidney stones History of esophageal dilatation Hypertension Calculus of distal left ureter Family History Father Hypertension Social History Smoking and tobacco/nicotine status: never used tobacco/nicotine Alcohol intake: current Alcohol intake frequency: holidays/special occasions only Marital status: Current occupational status: employed Physical Exam 2 Narrative: EXAM NARRATIVE: General: Alert, no acute distress. Skin: Warm, dry. Head: Normocephalic, atraumatic. Neck: Supple, trachea midline. Eye: Extraocular movements are intact. Ears, nose, mouth and throat: mucosa moist. Cardiovascular: Regular, Normal peripheral perfusion. Respiratory: Lungs are clear to auscultation, respirations are non-labored, breath sounds are equal, Symmetrical chest wall expansion. Gastrointestinal: Soft, Nontender, Non distended Musculoskeletal: Normal ROM, no deformity. Neurological: Alert and oriented, No focal neurological deficit observed. Psychiatric: Cooperative, appropriate mood & affect. Course 2 Vital Signs: Vital signs: Vital Signs Temperature 98.1 F 08/27/25 08:20 Pulse Rate 77 08/27/25 08:20 Respiratory Rate 14 08/27/25 08:20 Blood Pressure 169/104 08/27/25 08:20 Pulse Oximetry 98 08/27/25 08:20 Oxygen Delivery Me thod Room Air 08/27/25 08:20 MDM - Chest Pain Medical Decision Making Differential diagnosis for patient with chest pain includes but is not limited to and based on the above HPI, review of systems and physical exam: Pneumonia. unstable angina. angina. Acute coronary syndrome / CA. Pulmonary embolism. Costochondritis / musculoskeletal. Pleurisy. Pericarditis. Esophageal spasm. Pancreatis. Cholecystitis. Orders placed to evaluate differential diagnosis based on the above differential, HPI and physical exam EKG: Time 8:16 AM. Rate 75. Normal sinus rhythm, intraventricular conduction delay. Some slight elevation to the anterior lateral leads. No reciprocal depression. Nonspecific ST changes. This was reviewed and interpreted by myself the ER physician at 8:18 AM. I sent this to Dr. Mackey who is on-call for interventional cardiology. He does not believe this is a STEMI and recommends usual chest pain workup. Repeat EKG: Time 9:39 AM. Rate 71. Normal sinus rhythm, nonspecific ST elevation, no ectopy, normal MS & QRS intervals, This was reviewed and interpreted by myself the ER physician at 9:44 AM. No significant changes from EKG done previously today in the emergency room. Chest x-ray: No acute process. No infiltrate. No pneumothorax. This was reviewed and interpreted by myself the emergency room physician. I also reviewed the radiology report. Lab Review: Laboratory results were reviewed and interpreted by myself the emergency room physician. Mild leukocytosis. No anemia. No renal failure. Serial troponins are negative. I reviewed the patient's medical record. 44-year-old man with a history of coronary artery disease, ischemic cardiomyopathy, kidney stones and hypertension. Reviewed previous EKG which had a similar tracing but was much more elevated in the anterolateral leads and was a STEMI at that time. Patient had an echocardiogram 02/17/2024. This showed moderate to severe reduced EF at 30 to 35% with mild mitral regurgitation. He had a repeat in August 2024 that showed slightly improved EF at 40%. Reviewed most recent cardiology note. This was in April. Reexamination: Patient remained stable. No increased work of breathing. No altered mental status. No focal motor deficits. I discussed findings at length with the patient and his . His is extremely worried. Which cannot blame her he is very young to have heart disease and his father last month from a heart attack. He says he has been having worsening shortness of breath with exertion. Says he was extremely winded after just moving a single sheet of plywood. No leg swelling. Consultation: I spoke with Dr. Mackey initially about the EKG which she did not feel was a STEMI, and then later about the patient who follows with him in clinic. He says he is leaving town for the next 3 weeks so follow-up and stress test would be difficult to get done in a timely fashion and given the patient's history he feels like the patient should be observed and stress test tomorrow. Consultation: I spoke with Dr. Loera who is on-call for the hospitalist service who agrees to admission. Assessment and plan: Chest pain Coronary artery disease Congestive heart failure ?Aspirin in the emergency room. -I discussed the patient with the hospitalist on-call who is admitting the patient. - Discussed findings and plan with patient. Answered any questions. - All laboratory values were reviewed and interpreted personally by myself, the ER physician - All imaging was reviewed and interpreted personally by myself, the ER physician. - Evaluation and treatment of this problem were appropriate in the emergency setting Lab Data 08/27/25 08:38 08/27/25 09:03 Radiology Impressions Chest X-Ray 08/27/25 08:19 IMPRESSION: No acute findings. Laboratory Results WBC 11.62 10^3/uL (3.29-11.43) H 08/27/25 08:38 RBC 4.79 10^6/uL (3.85-5.65) 08/27/25 08:38 Hgb 13.90 g/dL (11.27-16.99) 08/27/25 08:38 Hct 42.4 % (37-53) 08/27/25 08:38 MCV 88.5 fl (82-101) 08/27/25 08:38 MCH 29.0 pg (27-33) 08/27/25 08:38 MCHC 32.8 g/dL (30-55) 08/27/25 08:38 RDW 14.4 % (12.1-15.1) 08/27/25 08:38 Plt Count 157 10^3/cmm (157-399) 08/27/25 08:38 MPV 11.2 fL (7.4-10.4) H 08/27/25 08:38 Neut % (Auto) 74.6 % 08/27/25 08:38 Lymph % (Auto) 15.5 % 08/27/25 08:38 [place] % (Auto) 5.8 % 08/27/25 08:38 Eos % (Auto) 3.6 % 08/27/25 08:38 Baso % (Auto) 0.2 % 08/27/25 08:38 Neut # (Auto) 8.68 10^3/uL (1.8-7.7) H 08/27/25 08:38 Lymph # (Auto) 1.8 10^3/uL (0.8-4.8) 08/27/25 08:38 [place] # (Auto) 0.7 10^3/uL (0.2-0.9) 08/27/25 08:38 Eos # (Auto) 0.4 10^3/uL (0.0-0.8) 08/27/25 08:38 Baso # (Auto) 0.0 10^3/uL (0.0-0.1) 08/27/25 08:38 Nucleated RBC % (auto) 0 % 08/27/25 08:38 Nucleated RBCs # 0.0 /100WBC 08/27/25 08:38 Sodium 139 mmol/L (136-145) 08/27/25 09:03 Potassium 4.9 mmol/L (3.5-5.1) 08/27/25 09:03 Chloride 106 mmol/L (98-107) 08/27/25 09:03 Carbon Dioxide 21 mmol/L (22-29) L 08/27/25 09:03 Anion Gap 16.9 (5-19) 08/27/25 09:03 BUN 16 mg/dL (6-20) 08/27/25 09:03 Creatinine 0.7 mg/dL (0.7-1.2) 08/27/25 09:03 GFR Calculation 121.4 mL/min (90-130) 08/27/25 09:03 Glucose 98 mg/dL (65-115) 08/27/25 09:03 Calculated Osmolality 289 mOsm/kg (285-295) 08/27/25 09:03 Calcium 8.6 mg/dL (8.5-10.5) 08/27/25 09:03 Total Bilirubin 0.4 mg/dL (0.15-1.2) 08/27/25 09:03 AST 24 U/L (0-40) 08/27/25 09:03 ALT 36 U/L (0-41) 08/27/25 09:03 Alkaline Phosphatase 69 U/L (40-130) 08/27/25 09:03 Troponin T Baseline < 6 ng/L (0-15) 08/27/25 08:38 Troponin T 120 Minute < 6.0 ng/L (0-15) 08/27/25 10:00 Delta Troponin T 0 ABS# (0-10) 08/27/25 10:00 NT-Pro-B Natriuret Pep 180 pg/mL (0-125) H 08/27/25 09:03 Total Protein 6.9 g/dL (6.6-8.7) 08/27/25 09:03 Albumin 4.2 g/dL (3.5-5.2) 08/27/25 09:03 Globulin 2.7 g/dL (1.3-4.6) 08/27/25 09:03 All radiology interpretation(s) finalized by discharge Clincial Decision Support The following clinical decision support tools were used to aid in care of the patient HEART Score -> History: Moderately Suspicious, EKG: Non-specific Changes, Age: 45-64 yrs, Risk Factors: >/=3 Risk Factors, Troponin: Baseline Trop <16 ng/L. Resulting HEART Score: 5. Discharge Plan Discharge Patient Disposition: Placed in Observation Clinical Impression: Chest pain, Coronary artery disease Coding Level of Care Code ED Automation And Controls Supervisor for Chg Fwd Heart Score HEART Score Components History: Moderately Suspicious EKG: Non-specific Changes Age: 45-64 yrs Risk Factors: >/=3 Risk Factors Troponin: Baseline Trop <16 ng/L HEART Score RESULT HEART Score: 5
[2025-08-27 08:46] LABS: Hematocrit 42.4 % (37-53); Hemoglobin 13.90 g/dL (11.27-16.99); Mean Corpuscular HGB Conc 32.8 g/dL (30-55); Mean Corpuscular Hemoglobin 29.0 pg (27-33); Mean Corpuscular Volume 88.5 fl (82-101); Nucleated Red Blood Cells % 0 %; Platelet Count 157 10^3/cmm (157-399); Red Blood Count 4.79 10^6/uL (3.85-5.65); White Blood Count 11.62 10^3/uL (3.29-11.43)
[2025-08-27 09:04] LABS: Troponin(5th) Baseline < 6 ng/L (0-15)
[2025-08-27 09:36] LABS: Alanine Aminotransferase 36 U/L (0-41); Albumin Level 4.2 g/dL (3.5-5.2); Alkaline Phosphatase 69 U/L (40-130); Anion Gap 16.9 (5-19); Aspartate Amino Transferase 24 U/L (0-40); Blood Urea Nitrogen 16 mg/dL (6-20); Calcium 8.6 mg/dL (8.5-10.5); Carbon Dioxide 21 mmol/L (22-29); Chloride 106 mmol/L (98-107); Creatinine Clr Calc Pharmacy 162.0948; Globulin 2.7 g/dL (1.3-4.6); Glucose 98 mg/dL (65-115); Osmolality Calculated 289 mOsm/kg (285-295); Potassium 4.9 mmol/L (3.5-5.1); Sodium 139 mmol/L (136-145); Total Protein 6.9 g/dL (6.6-8.7)
[2025-08-27 09:39] LABS: NT Pro B Type Natriuretic Pept 180 pg/mL (0-125)
[2025-08-27 10:27] LABS: Troponin 5 2HR < 6.0 ng/L (0-15); Troponin 5 2HR Delta 0 ABS# (0-10)
--- NOTE | 2025-08-27 10:36 | ECG_ITS ---
[facility] 2025-[facility]27 Pat Name: Perry De Jesus Department: Room: Gender: Male Broacher: : 1980 Requested By: Marielena Neely Order Number: [id number] Rosa MD: Fiona Mariscal M.D. Measurements Intervals Floweree Rate: 77 P: 43 MN: 143 QRS: -5 QRSD: 157 T: 69 QT: 406 QTc: 462 Interpretive Statements SINUS RHYTHM INTRAVENTRICULAR CONDUCTION DELAY [130+ ms QRS DURATION] Compared to ECG 08/27/2025 08:16:52 Sinus arrhythmia no longer present Electronically Signed On 08-29-2025 19:46:53 CDT by Fiona Mariscal M.D. [email or web address]
--- NOTE | 2025-08-27 10:53 | USCV_ITS ---
Perry De Jesus Age: 44 Gender: M : 1980 Exam Date: 08/27/2025 11:24 Ordering Phys: Marielena Gr MD Technologist: Jerome Michael Exam Location: [facility] Indication: coronary artery disease, chest pain, dyspnea, history of chf BP: 112 / 74 HR: 78 Rhythm: Sinus Technical Quality: Adequate MEASUREMENTS (Male / Female) Normal Values 2D ECHO LV Diastolic Diameter PLAX 4.7 cm 4.2 - 5.9 / 3.9 - 5.3 cm IVS Diastolic Thickness 1.2 cm 0.6 - 1.0 / 0.6 - 0.9 cm IVS Systolic Thickness 1.2 cm LVPW Diastolic Thickness 1.0 cm 0.6 - 1.0 / 0.6 - 0.9 cm LVPW Systolic Thickness 1.3 cm LVOT Diameter 2.0 cm LV Ejection Fraction 2D Teich 48.7 % LV Ejection Fraction MOD 4C 41.2 % LV Ejection Fraction MOD 2C 43.6 % LV Ejection Fraction 2C AL 44.2 % LA Diameter 3.0 cm RA Systolic Volume 4C AL 45.6 ml RA Systolic Volume 4C MOD 45.3 ml LA Sys Volume AL 66.6 cm cubed LA Sys Volume Index AL 28.8 cm cubed/m squared Aorta at Sinotubular Diameter 2.5 cm IVC Diameter 1.6 cm M-MODE LA Ao Ratio MM 1.4 AV Cusp Separation MM 2.0 cm DOPPLER AV Peak Velocity 128.7 cm/s LVOT Peak Velocity 102.0 cm/s AV Area Cont Eq vti 2.9 cm squared AV Area Cont Eq pk 2.6 cm squared MV Peak Velocity 95.0 cm/s MV Area PHT 4.0 cm squared Mitral E to A Ratio 0.7 TR Peak Velocity 296.0 cm/s TR Peak Gradient 35.0 mmHg TR Mean Velocity 245.0 cm/s TR Mean Gradient 25.3 mmHg TR Velocity Time Integral 83.3 cm PV Peak Velocity 127.0 cm/s RV Ejection Time 0.2 s FINDINGS Left Ventricle Normal left ventricular cavity size. Mild hypokinesis of all segments of the inferior septum with EF of 44%. Grade I/IV diastolic dysfunction (abnormal relaxation filling pattern), normal to mildly elevated filling pressures. Mild septal left ventricular hypertrophy. Right Ventricle Normal right ventricular size and systolic function. Right Atrium Normal right atrial size. Left Atrium Normal left atrial size. IA Septum Normal appearance of the interatrial septum. Mitral Valve Normal mitral valve structure. Trace mitral valve regurgitation. Aortic Valve Normal aortic valve structure. No aortic valve stenosis. Trace aortic valve regurgitation. Tricuspid Valve Normal tricuspid valve structure. No tricuspid valve stenosis. Trace regurgitation. Normal pulmonary pressure. Pulmonic Valve Normal pulmonic valve structure. No pulmonic valve stenosis or regurgitation. Pericardium No pericardial effusion. Aorta Normal diameter of the aortic root and ascending thoracic aorta. IVC Normal IVC diameter. CONCLUSIONS Normal left ventricular cavity size. Mild hypokinesis of all segments of the inferior septum with EF of 44%. Grade I/IV diastolic dysfunction (abnormal relaxation filling pattern), normal to mildly elevated filling pressures. Mild septal left ventricular hypertrophy. Normal right ventricular size and systolic function. No significant valvular abnormalities. Sedrick Swanson MD, FACC (Electronically Signed) Final Date: 27 August 2025 14:35 S
--- NOTE | 2025-08-27 12:24 | P.HP_ITS ---
Providers/Chief Complaint 2 Admitting Physician: VIANCA LOERA DO--patient admitted at noon 08/27/2025 as an overflow to ICU Primary Care Provider: Leonel Man MD Chief Complaint: Chest pains History of Present Illness Perry De Jesus is a 44 year old male with medical history significant for coronary artery disease with a left main coronary artery stent at the time of myocardial infarction just a year ago, patient with ischemic cardiomyopathy, a patient of Dr. Mackey who was consulted and related that the patient be brought in for a stress test. Patient at this time is coming in with chest pain recent EF had increased a year ago from 30 to 35% to 40% a year ago. Upon evaluation in the emergency room patient does have abnormal EKG with the cardiology did not think it is an ST elevation and troponin x 2 were negative in the emergency room. Patient had received aspirin in the emergency room. I have been consulted to follow-up with this patient admitted to the hospital for care of obtaining a stress test tomorrow. Review of Systems 2 Narrative: System review upon 10 organ review we are significant for cardiovascular symptoms of chest pain upon movement and 1 upon deep breathing like into short Medications/Allergies Home Medications ?Medication ?Instructions ?Recorded ?Confirmed ?Last Taken ?Type aspirin 81 mg tablet,delayed 81 mg PO DAILY #100 tabs 01/15/24 08/27/25 08/27/25 Rx release nitroglycerin 0.4 mg sublingual 0.4 mg sublingual Q5M PRN chest 01/25/24 08/27/25 Unknown Rx tablet pain #20 tabs olmesartan 40 mg tablet 40 mg PO DAILY #30 tabs 04/04/0208/27/25 08/27/25 Rx atorvastatin 40 mg tablet 40 mg PO QAM 08/27/2508/27/25 History lansoprazole 30 mg capsule,delayed 30 mg PO DAILY PRN Acid Reflux 08/27/25 08/27/25 Unknown History release metoprolol tartrate 25 mg tablet 25 mg PO BID 08/27/25 08/27/25 08/27/25 History Allergies Allergy/AdvReac Type Severity Reaction Status Date / Time No Known Allergies Allergy Verified 08/27/25 08:20 PFSH Acute 2 PFSH: Medical History Ischemic cardiomyopathy Coronary artery disease Acute anterior wall W[place] Recurrent kidney stones History of esophageal dilatation Hypertension Calculus of distal left ureter Family History Father Hypertension Social History Smoking and tobacco/nicotine status: never used tobacco/nicotine Alcohol intake: current Alcohol intake frequency: holidays/special occasions only Marital status: Current occupational status: employed Vitals/I&O/Wt Last Vital Signs Temp 98.1 F 08/27/25 08:20 Pulse 77 08/27/25 08:20 Resp 14 08/27/25 08:20 BP 169/104 08/27/25 08:20 Pulse Ox 98 08/27/25 08:20 O2 Del Method Room Air 08/27/25 08:20 08/26/25 08/27/25 08/27/25 22:59 06:59 14:59 Intake Total 0 / 0 Balance 0 / 0 Weight last 48 hrs Weight 104.326 kg Physical Exam 2 Narrative: General the patient looks well in no apparent distress HEENT normocephalic atraumatic neck neck is supple cardiovascular heart rate is regular lungs are pretty much clear abdomen soft nontender nondistended unremarkable extremities are intact no edema has good pulses neurology has no focality lab studies lab studies have been reviewed and noted and all found to be within normal range Data 08/28/25 03:42 08/28/25 03:42 A&P Assessment and plan 1. Chest pain: 2. Ischemic cardiomyopathy: 3. Acute anterior wall WY: 4. Hypertension: PDMP PDMP Reviewed: Not Reviewed Attestations 2 Medical Necessity Statement*: Patient is observation and will be going home after less than 2 midnight Coding Level of Care Code Acute Code for [facility] Fwd Diagnoses Chest pain R07.9 Ischemic cardiomyopathy I25.5 Acute anterior wall W[place] I21.09 Hypertension I10 Time Spent (min) 60
--- NOTE | 2025-08-27 13:43 | PC.PHAR ---
Pt previously took Metoprolol Succ ER 25 once daily. Newest order from Dr Bragg is Metoprolol Tart. 25mg bid. Pt has mistakenly only been taking once daily.
--- NOTE | 2025-08-27 14:29 | ECG_ITS ---
[facility] Date: 2025-08-27 Pat Name: Perry De Jesus Department: Room: EDIP Gender: Male Nurse Special: : 1980 Requested By: Marielena Neely Order Number: [id number] Rosa MD: Fiona Mariscal M.D. Measurements Intervals [place] Rate: 82 P: 55 OR: 141 QRS: 12 QRSD: 153 T: 71 QT: 405 QTc: 476 Interpretive Statements SINUS RHYTHM LEFT BUNDLE BRANCH BLOCK [120+ ms QRS DURATION, 80+ ms Q/S IN V1/V2, 85+ ms R IN I/aVL/V5/V6] Compared to ECG 08/27/2025 10:36:14 Left bundle-branch block now present Intraventricular conduction delay no longer present Electronically Signed On 08-29-2025 19:46:41 CDT by Fiona Mariscal M.D. [id number] [id number]
[2025-08-27 15:18] LABS: Troponin 5 6HR < 6.0 ng/L (0-15); Troponin 5 6HR Delta 0 ng/L (0-12)
--- OUTSIDE RECORDS SUMMARY | 2025-08-27 15:45 | XMS_ITS | Encounter Summary ---
Author Organization [facility] Address [address] [place] [address] Care Team Providers Care Machine Carton Marker Name Role Phone Leonel Man MD Primary Care Provider [phone] Encounter Details Date Type Department Care Team (Late st Contact Info) Description 06/25/2004 Emergency [facility] Emergency Department [address] [place] [address] Genny Covington, [place] NO ADDRESS ON FILE FOLLOW-UP EXAM NEC (Primary Dx) Social History Tobacco Use Types Packs/Day Years Used Date Smoking Tobacco: Never Assessed Sex and Gender Information Value Date Recorded Sex Assigned at Not on file Legal Sex Male 2:57 AM RN INTERN Gender Identity Not on file Sexual Orientation Not on file documented as of this encounter Plan of Treatment Not on file documented as of this encounter Visit Diagnoses Diagnosis Other follow-up examination(V67.59)- Primary Other follow-up examination documented in this encounter Care Teams Machine Carton Marker Relationship Specialty Start Date End Date Leonel Man MD [address] [place] [id number] PCP - General 05/16/09 documented as of this encounter
--- OUTSIDE RECORDS SUMMARY | 2025-08-27 15:45 | XMS_ITS | Encounter Summary ---
Author Organization [facility] Address [address] [place] [address] Care Team Providers Care Labor And Delivery Nurse Name Role Phone Leonel Man MD Primary Care Provider Encounter Details Date Type Department Care Team (Latest Contact Info) Description 11/15/[address] [facility] Ear, Nose and Throat [address] [place] 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
--- OUTSIDE RECORDS SUMMARY | 2025-08-27 15:45 | XMS_ITS | Clinical Summary ---
Author Organization [facility] Building Address [address] [place] [phone] Phone Care Team Providers Care Petroleum Transport Driver Name Role Phone Leonel Man MD Primary Care Provider [phone] Allergies No known active allergies Medications lansoprazole [...] on file Legal Sex Male 2:57 AM RADIAGRAPH OPERATOR Gender Identity Not on file Sexual [...] Advance Directives For more information, please contact: [phone] * Full Code (Latest Code Status on File) Date Activated Date Inactivated Comments 03/26/2016 8:27 AM 03/26/2016 12:14 PM * Full Code Date Activated Date Inactivated Comments 01/23/2016 10:17 AM 01/23/2016 2:14 PM * Full Code Date Activated Date Inactivated Comments 12/12/2015 9:49 AM 12/12/2015 1:16 PM Care Teams Petroleum Transport Driver Relationship Specialty [place] [address] [place] [id number] PCP - General 05/16/09
--- OUTSIDE RECORDS SUMMARY | 2025-08-27 15:45 | XMS_ITS | Clinical Summary ---
Author Organization [facility] Address [address] [facility] Attn: Epic Prelude ADT RANJITH NARANJO [address] Care Team Providers Care Head Waiter Name Role Phone Leonel Man MD Primary [...] on file Legal Sex Male 2:58 PM EDUCATION SUPERVISOR Gender Identity Not on file Sexual Orientation [...] age to complete this topic Care Teams Head Waiter Relationship Specialty [place] [address] [place] [phone] PCP - General 05/16/09
--- OUTSIDE RECORDS SUMMARY | 2025-08-27 15:45 | XMS_ITS | Encounter Summary ---
Author Organization [facility] Address [address] [place] [address] Care Team Providers Care Transcriptionist Name Role Phone Leonel Man MD Primary Care Provider [phone] Encounter Details Date Type Department Care Team (Latest Contact Info) Description 12/27/2003 Outpatient Historical [facility] Ear, Nose and Throat [address] [place] [address] [place] [address] Benedicto Gomez MD [address] [facility] [address] [place] [address] PERFORAT TYMPAN MEMB NOS (Primary Dx) Social History Tobacco Use Types Packs/Day Years Used Date Smoking Tobacco: Never Assessed Sex and Gender Information Value Date Recorded Sex Assigned at Not on file Legal Sex Male 2:57 AM SOLUTIONS CONSULTANT Gender Identity Not on file Sexual Orientation Not on file documented as of this encounter Plan of Treatment Not on file documented as of this encounter Visit Diagnoses Diagnosis Perforation of tympanic membrane, unspecified- Primary documented in this encounter Care Teams Transcriptionist Relationship Specialty Start Date End Date Leonel Man MD [address] [place], [place] [address] PCP - General 05/16/09 documented as of this encounter
--- OUTSIDE RECORDS SUMMARY | 2025-08-27 15:45 | XMS_ITS | Encounter Summary ---
Author Organization [facility] Address [address] [place] [address] Care Team Providers Care Endocrinology Specialist Name Role Phone Leonel Man MD Primary Care Provider [phone] Encounter Details Date Type Department Care Team (Late st Contact Info) Description 06/22/2004 Emergency [facility] Emergency Department [address] [place] [address] Nan Mckenzie MD [address] [place], [place] [address] OPEN WOUND KNEE/LEG/ANKLE (Primary Dx) Social History Tobacco Use Types Packs/Day Years Used Date Smoking Tobacco: Never Assessed Sex and Gender Information Value Date Recorded Sex Assigned at Not on file Legal Sex Male 2:57 AM CAP COVERER Gender Identity Not on file Sexual Orientation Not on file documented as of this encounter Plan of Treatment Not on file documented as of this encounter Visit Diagnoses Diagnosis Open wound of knee, leg (except thigh), and ankle, without mention of complication- Primary documented in this encounter Care Teams Endocrinology Specialist Relationship Specialty Start Date End Date Leonel Man MD [address] [place] [address] PCP - General 05/16/09 documented as of this encounter
--- OUTSIDE RECORDS SUMMARY | 2025-08-27 15:45 | XMS_ITS | Encounter Summary ---
Author Organization [facility] Address [address] [place] [address] Care Team Providers Care Sanitation Manager Name Role Phone Leonel Man MD Primary Care Provider Encounter Details Date Type Department Care Team (Latest Contact Info) Description 12/23/2006 Outpatient Historical [facility] Urology- [address]tr[address] B, 3rd [place] [address] Terry East MD [address] [place] [address] [address] [place] [address] Sterilization (Primary Dx) Social History Tobacco Use Types Packs/Day Years Used Date Smoking Tobacco: Never Assessed Sex and Gender Information Value Date Recorded Sex Assigned at Not on file Legal Sex Male 2:57 AM LAND LEVELER Gender Identity Not on file Sexual Orientation Not on file documented as of this encounter Plan of Treatment Not on file documented as of this encounter Visit Diagnoses Diagnosis Sterilization- Primary documented in this encounter Care Teams Sanitation Manager Relationship Specialty Start Date End Date Leonel Man MD [address] [place], [place] [address] PCP - General 05/16/09 documented as of this encounter
--- OUTSIDE RECORDS SUMMARY | 2025-08-27 15:45 | XMS_ITS | Encounter Summary ---
Author Organization [facility] Address [address] [place] [address] Care Team Providers Care Make Ready Mechanic Name Role Phone Leonel Man MD Primary Care Provider Encounter Details Date Type Department Care Team (Late st Contact Info) Description 12/27/2003 Outpatient Historical [facility] Ear, Nose and Throat [address] [address] [place] [phone] Social History Tobacco Use Types Packs/Day Years Used Date Smoking Tobacco: Never Assessed Sex and Gender Information Value Date Recorded Sex Assigned at Not on file Legal Sex Male 2:57 AM BATCH FREEZER Gender Identity Not on file Sexual Orientation Not on file documented as of this encounter Plan of Treatment Not on file documented as of this encounter Visit Diagnoses Not on filedocumented in this encounter Care Teams Make Ready Mechanic Relationship Specialty Start Date End Date Leonel Man MD [facility] [place], [place] [phone] PCP - General 05/16/09 documented as of this encounter
--- OUTSIDE RECORDS SUMMARY | 2025-08-27 15:45 | XMS_ITS | Encounter Summary ---
Author Organization [facility] Address [address] [place] [address] Care Team Providers Care Single Corner Cutter Name Role Phone Leonel Man MD Primary Care Provider [phone] Encounter Details Date Type Department Care Team (Latest Contact Info) Description 01/19/2007 Outpatient Historical [facility] Urology- [address]trance B, 3rd [place] [address] Terry East MD [address] [place] [address] [address] [place] [address] Sterilization (Primary Dx) Social History Tobacco Use Types Packs/Day Years Used Date Smoking Tobacco: Never Assessed Sex and Gender Information Value Date Recorded Sex Assigned at Not on file Legal Sex Male 2:57 AM PERSONNEL CLERKS SUPERVISOR Gender Identity Not on file Sexual Orientation Not on file documented as of this encounter Plan of Treatment Not on file documented as of this encounter Visit Diagnoses Diagnosis Sterilization- Primary documented in this encounter Care Teams Single Corner Cutter Relationship Specialty Start Date End Date Leonel Man MD [address] [place], [place] [phone] PCP - General 05/16/09 documented as of this encounter
--- NOTE | 2025-08-27 15:50 | ECG_ITS ---
[employer] Test Date: 2025-08-28 Pat Name: Perry De Jesus Department: Room: ICU12 Gender: Male Safety Engineer Pressure Vessels: : 1980 Requested By: Aleksandra Price Order Number: [id number] Rosa MD: Sedrick Swanson M.D. Interpretive Statements procedure: A total of 0.4 mg of Lexiscan was infused over 20 seconds. The stress phase was continued for a total of 5 minutes. Sestamibi was injected 20 seconds after the Lexiscan infusion. Findings:The patient's blood pressure at the beginning of the stress test was 137/78 with a heart rate of 86 bpm. Lexiscan was injected and the blood pressure did not significantly change. The patient's heart rate gradually increased to a maximum of 120 bpm. At the end of recovery the patient's blood pressure was 144/80 with a heart rate of 100 bpm. The resting EKG showed normal sinus rhythm with intraventricular conduction delay with baseline downsloping ST depression. There were no ST changes after Lexiscan injection. No arrhythmias occurred. Conclusion: 1. Normal EKG response to Lexiscan infusion 2. No Lexiscan induced chest pain or cardiac arrhythmia. 3. Normal blood pressure and heart rate response. 4. Nuclear myocardial perfusion scan pending; see separate report. Electronically Signed On 08-28-2025 23:12:43 CDT by Sedrick Swanson M.D. [id number] [id number]
[2025-08-27] MEDS: nitroglycerin 1 gm/inch oint Pkt 1 INCH TOPICAL (16:45)
[2025-08-27] MEDS: heparin 5,000 unit/mL INJ 1 mL 5000 UNIT SUBCUT (16:46)
--- NOTE | 2025-08-27 22:38 | PC.NURSE ---
Refused nitro: Pt refused nitro paste, not reporting any CP. Dr. Wyatt notified.
[2025-08-28] VITALS (15 sets, daily range): BP systolic 91–144; BP diastolic 51–90; PULSE 69–100; RESP 16–26; TEMP 36.4–37.7; O2SAT 91–96
--- NOTE | 2025-08-28 01:35 | PC.NURSE ---
Low BP: Nitro paste removed from patient's chest due to low BPs. No CP reported.
[2025-08-28 04:06] LABS: Hematocrit 38.4 % (37-53); Hemoglobin 12.80 g/dL (11.27-16.99); Mean Corpuscular HGB Conc 33.3 g/dL (30-55); Mean Corpuscular Hemoglobin 29.4 pg (27-33); Mean Corpuscular Volume 88.3 fl (82-101); Nucleated Red Blood Cells % 0 %; Platelet Count 135 10^3/cmm (157-399); Red Blood Count 4.35 10^6/uL (3.85-5.65); White Blood Count 6.98 10^3/uL (3.29-11.43)
[2025-08-28 04:15] LABS: Alanine Aminotransferase 27 U/L (0-41); Albumin Level 3.8 g/dL (3.5-5.2); Alkaline Phosphatase 63 U/L (40-130); Anion Gap 12.9 (5-19); Aspartate Amino Transferase 18 U/L (0-40); Blood Urea Nitrogen 15 mg/dL (6-20); Calcium 8.3 mg/dL (8.5-10.5); Carbon Dioxide 24 mmol/L (22-29); Chloride 100 mmol/L (98-107); Creatinine Clr Calc Pharmacy 130.2324; Globulin 2.7 g/dL (1.3-4.6); Glucose 98 mg/dL (65-115); Magnesium 1.8 mg/dL (1.7-2.3); Osmolality Calculated 277 mOsm/kg (285-295); Potassium 3.9 mmol/L (3.5-5.1); Sodium 133 mmol/L (136-145); Total Protein 6.5 g/dL (6.6-8.7)
[2025-08-28] MEDS: heparin 5,000 unit/mL INJ 1 mL 5000 UNIT SUBCUT (04:51)
--- NOTE | 2025-08-28 10:08 | PC.NURSE ---
spoke with provider about patients home medication instructions to restart home meds as per med req.
--- NOTE | 2025-08-28 10:15 | PC.NURSE ---
report received from amado campbell rn as patient transfered from icu to csu. patient resting comfortably in 104 with at bedside
[2025-08-28] MEDS: ATORVASTATIN 20 MG TABLET 40 MG PO (11:01)
--- NOTE | 2025-08-28 15:14 | P.DS_ITS ---
Discharge Providers Date of Admission: 08/27/25 10:52 Date of Discharge: August 28, 2025 Attending Provider at Admission: Aleksandra Loera MD Attending Provider at Discharge: Aleksandra Loera MD Primary Care Provider: Leonel Man MD Diagnoses at Discharge Discharge Diagnosis 1. Chest pain: 2. Ischemic cardiomyopathy: 3. Acute anterior wall IL: 4. Hypertension: Reason for Visit Reason for Visit: Chest pains Hospital Course Hospital Course Perry De Jesus is a 44 year old male with medical history significant for coronary artery disease with a left main coronary artery stent at the time of myocardial infarction just a year ago, patient with ischemic cardiomyopathy, a patient of Dr. Mackey who was consulted and related that the patient be brought in for a stress test. Patient at this time is coming in with chest pain recent EF had increased a year ago from 30 to 35% to 40% a year ago. Upon evaluation in the emergency room patient does have abnormal EKG with the cardiology did not think it is an ST elevation and troponin x 2 were negative in the emergency room. Patient had received aspirin in the emergency room. I have been consulted to follow-up with this patient. Patient seen and admitted to the hospital for care of obtaining a stress test. Beta-kathia held, patient kept n.p.o. and underwent Lexiscan SPECT stress test and it was negative. The result of the stress test is per below as read by frame straightener Dr. Lux. Patient at this time is found to be in stable condition did not have any further chest pain and is being discharged in stable condition. Patient had undergone a lot of anxiety disorder with issues with ongoing chest pain at any moment he moves around. I have placed the patient on BuSpar which is a not addicting antianxiety at a very lowest dose of 5 mg twice a day and this can be increased at interval of every 6 weeks if needed to a maximum dose of 60 mg total in a day. Patient is on statin and beta-kathia and on aspirin PERFUSION FINDINGS Large area of fixed perfusion fat noted in basal to distal anteroseptal and basal to distal inferoseptal wall on both stress and rest images suggestive of old myocardial infarction versus scarring without lucien-infarct ischemia FUNCTIONAL RESULTS (calculated via Gated SPECT) Stress Image LV EF (%): 36 Stress EDV (mL):213 TID: 1.06 Stress ESV (mL):137 FUNCTIONAL FINDINGS: Severely reduced ejection fraction. Estimate ejection fraction around 36%. Please note that nuclear stress test is not designed to estimate ejection fraction which could be misleading. Echocardiogram is better modality to assess LV function. There appeared to be anterior septal inferior apical and apical akinesis IMPRESSIONS Large area of old myocardial infarction without lucien-infarct ischemia was noted in the basal to distal anteroseptal and inferoseptal wall. This study is negative for ischemia and suggestive of old myocardial infarction. Irasema Lux MD (Electronically Signed) Final Date: 28 August 2025 Physical Exam Narrative: General the patient looks well in no apparent distress HEENT normocephalic atraumatic neck neck is supple cardiovascular heart rate is regular lungs are pretty much clear abdomen soft nontender nondistended unremarkable extremities are intact no edema has good pulses neurology has no focality lab studies lab studies reviewed and noted. Discharge Data Studies Completed and Pending Completed Studies During Hospitalization Category Date Time Status Cardiac Stress Test MIBI [Sestamibi Stress Test Request Exams 08/27/25 15:50 Draft ] Routine XR chest 1V portable [id number] Stat Exams 08/27/25 08:19 Completed NM sudha perf SPECT r/s* [id number] Routine Nuc Med 08/28/25 15:50 Completed US echo complete [CV. echo complete* [id number]] Stat Ultrasound 08/27/25 10:53 Completed Pending at discharge Category Date Time Status Cyto Order Verification Routine Lab 08/28/25 09:29 Ordered Radiology Impressions Chest X-Ray 08/27/25 08:19 IMPRESSION: No acute findings. Laboratory Results WBC 6.98 10^3/uL (3.29-11.43) 08/28/25 03:42 RBC 4.35 10^6/uL (3.85-5.65) 08/28/25 03:42 Hgb 12.80 g/dL (11.27-16.99) 08/28/25 03:42 Hct 38.4 % (37-53) 08/28/25 03:42 MCV 88.3 fl (82-101) 08/28/25 03:42 MCH 29.4 pg (27-33) 08/28/25 03:42 MCHC 33.3 g/dL (30-55) 08/28/25 03:42 RDW 14.5 % (12.1-15.1) 08/28/25 03:42 Plt Count 135 10^3/cmm (157-399) L 08/28/25 03:42 MPV 11.0 fL (7.4-10.4) H 08/28/25 03:42 Neut % (Auto) 73.2 % 08/28/25 03:42 Lymph % (Auto) 17.3 % 08/28/25 03:42 [place] % (Auto) 8.9 % 08/28/25 03:42 Eos % (Auto) 0.4 % 08/28/25 03:42 Baso % (Auto) 0.1 % 08/28/25 03:42 Neut # (Auto) 5.10 10^3/uL (1.8-7.7) 08/28/25 03:42 Lymph # (Auto) 1.2 10^3/uL (0.8-4.8) 08/28/25 03:42 [place] # (Auto) 0.6 10^3/uL (0.2-0.9) 08/28/25 03:42 Eos # (Auto) 0.0 10^3/uL (0.0-0.8) 08/28/25 03:42 Baso # (Auto) 0.0 10^3/uL (0.0-0.1) 08/28/25 03:42 Nucleated RBC % (auto) 0 % 08/28/25 03:42 Nucleated RBCs # 0.0 /100WBC 08/28/25 03:42 Sodium 133 mmol/L (136-145) L 08/28/25 03:42 Potassium 3.9 mmol/L (3.5-5.1) 08/28/25 03:42 Chloride 100 mmol/L (98-107) 08/28/25 03:42 Carbon Dioxide 24 mmol/L (22-29) 08/28/25 03:42 Anion Gap 12.9 (5-19) 08/28/25 03:42 BUN 15 mg/dL (6-20) 08/28/25 03:42 Creatinine 0.9 mg/dL (0.7-1.2) 08/28/25 03:42 GFR Calculation 90.8 mL/min (90-130) 08/28/25 03:42 Glucose 98 mg/dL (65-115) 08/28/25 03:42 Calculated Osmolality 277 mOsm/kg (285-295) L 08/28/25 03:42 Calcium 8.3 mg/dL (8.5-10.5) L 08/28/25 03:42 Phosphorus 3.2 mg/dL (2.5-4.5) 08/28/25 03:42 Magnesium 1.8 mg/dL (1.7-2.3) 08/28/25 03:42 Total Bilirubin 1.3 mg/dL (0.15-1.2) H 08/28/25 03:42 AST 18 U/L (0-40) 08/28/25 03:42 ALT 27 U/L (0-41) 08/28/25 03:42 Alkaline Phosphatase 63 U/L (40-130) 08/28/25 03:42 Troponin T Baseline < 6 ng/L (0-15) 08/27/25 08:38 Troponin T 120 Minute < 6.0 ng/L (0-15) 08/27/25 10:00 Delta Troponin T 0 ABS# (0-10) 08/27/25 10:00 Troponin T Hi Sens 6Hr < 6.0 ng/L (0-15) 08/27/25 14:29 Troponin T Hi Sens 6Hr Delta 0 ng/L (0-12) 08/27/25 14:29 NT-Pro-B Natriuret Pep 180 pg/mL (0-125) H 08/27/25 09:03 Total Protein 6.5 g/dL (6.6-8.7) L 08/28/25 03:42 Albumin 3.8 g/dL (3.5-5.2) 08/28/25 03:42 Globulin 2.7 g/dL (1.3-4.6) 08/28/25 03:42 Vitals Last Vital Signs Temp 97.6 F 08/28/25 11:24 Pulse 88 08/28/25 11:24 Resp 24 H 08/28/25 11:24 BP 139/80 08/28/25 11:24 Pulse Ox 96 08/28/25 11:24 O2 Del Method Room Air 08/28/25 11:24 Discharge Plan Discharge Patient Disposition: Home Condition: Stable Prescriptions: New buspirone 5 mg tablet 5 mg PO BID Qty: 60 0RF Continued nitroglycerin 0.4 mg tablet, sublingual 0.4 mg sublingual Q5M PRN (Reason: chest pain) Qty: 20 11RF Rx Instructions: do not exceed 3 doses per episode olmesartan 40 mg tablet 40 mg PO DAILY Qty: 30 11RF atorvastatin 40 mg tablet 40 mg PO QAM lansoprazole 30 mg capsule,delayed release(DR/EC) 30 mg PO DAILY PRN (Reason: Acid Reflux) metoprolol tartrate 25 mg tablet 25 mg PO BID aspirin 81 mg Tablet,Delayed Release (Dr/Ec) 81 mg PO DAILY Qty: 100 0RF Operator [employer] OK for DC: Cardiology and Hospitalist Discharge Order = DC NOW: Discharge Order (Routine); Ordered 08/28/25 Ordered By: Aleksandra Loera Referrals: Sedrick Swanson MD [Physician, Cardiology] - 09/21/25 2:45 pm Leonel Man MD [Primary Care Provider, Family Practice] - 09/05/25 11:50 am Patient Instructions: Buspirone (By mouth), Coronary Artery Disease (DC), Chest Pain Stoplight, Opioid Safety, Patient Portal & Inderjit Instructions Discharge Attestations Time Spent in Discharge Care*: less than 30 min Quality Metrics Clinical Quality Measures [ No reported AMI, CVA or VTE this stay] Coding Level of Care Code Acute Code for Chg Fwd Diagnoses Chest pain R07.9 Ischemic cardiomyopathy I25.5 Acute anterior wall IL I21.09 Hypertension I10 Time Spent (min) 30
--- NOTE | 2025-08-28 15:50 | NMCV_ITS ---
NM sudha perf SPECT r/s* [id number] Perry De Jesus Age: 44 Gender: M : 1980 Exam Date: 08/28/2025 06:35 Ordering Phys: Aleksandra Loera MD Technologist: STACI Lira Exam Location: [facility] Indications: CP STRESS TEST [facility] for [facility] findings IMAGE PROTOCOL Rest/Stress 1 Lexiscan Day Radiopharmaceutical Dose (mCi) Administration Site Administered by Rest: Tc-99m 10.9 IV Salma Good, LEAD MECHANICAL ENGINEER Sestamibi Stress:Tc-99m 33 IV Salma Altamiranogle, LEAD MECHANICAL ENGINEER Sestamibi Rest: 28-Aug-2025 60 Discovery 630 Stress: 28-Aug-2025 30 Discovery 630 0.4mg Lexiscan. Images obtained in supine and prone position. SPECT RESULTS Technical Quality: Good Raw Data Analysis: Normal Image Corrections: No attenuation or motion correction applied Summed Stress Score: 33 Summed Rest Score: 33 Summed Difference Score: 3 PERFUSION FINDINGS Large area of fixed perfusion fat noted in basal to distal anteroseptal and basal to distal inferoseptal wall on both stress and rest images suggestive of old myocardial infarction versus scarring without lucien-infarct ischemia FUNCTIONAL RESULTS (calculated via Gated SPECT) Stress Image LV EF (%): 36 Stress EDV (mL):213 TID: 1.06 Stress ESV (mL):137 FUNCTIONAL FINDINGS: Severely reduced ejection fraction. Estimate ejection fraction around 36%. Please note that nuclear stress test is not designed to estimate ejection fraction which could be misleading. Echocardiogram is better modality to assess LV function. There appeared to be anterior septal inferior apical and apical akinesis IMPRESSIONS Large area of old myocardial infarction without lucien-infarct ischemia was noted in the basal to distal anteroseptal and inferoseptal wall. This study is negative for ischemia and suggestive of old myocardial infarction. Irasema Lux MD (Electronically Signed) Final Date: 28 August 2025 12:53 S
== END 2025-08-28 16:37 | disposition home or self-care (01) ==
LOC: ER 11:12 → ICU 15:43 → CSU 08-28 09:57
PROVIDERS: Admitting Provider Internal Medicine; Emergency Provider Emergency Medicine; PCP Family Medicine; Visit Provider Internal Medicine
DX: I25.5 Ischemic cardiomyopathy (principal); I21.09 ST elevation (STEMI) myocardial infarction involving other coronary artery of anterior wall; I10 Essential (primary) hypertension; Z79.82 Long term (current) use of aspirin; I25.10 Atherosclerotic heart disease of native coronary artery without angina pectoris; Z95.5 Presence of coronary angioplasty implant and graft; Z82.49 Family history of ischemic heart disease and other diseases of the circulatory system
CPT/HCPCS: 36415; 71045; 78452; 80053; 83735; 83880; 84100; 84484; 85025; 93005; 93017; 93306; 96372; 96375; A9500; G0378; J1644; J2785; J7030; J9999

== ENCOUNTER → 2025-10-16 16:15 | Outpatient (BNVA) | payer OTHER, SELFPAY | PROVIDERS: PCP Family Medicine; Visit Provider Internal Medicine | DX: E78.5 Hyperlipidemia, unspecified (principal); I10 Essential (primary) hypertension; I25.10 Atherosclerotic heart disease of native coronary artery without angina pectoris | CPT/HCPCS: 36415; 80061 ==